=== PATIENT | female | born 1955 | race Caucasian/White ===

== ENCOUNTER 2016-10-07 16:11 | Inpatient (IN) | payer MEDICAID ==
[~2016-10-07] VITALS: Ht 147.3 cm; Wt 45.4 kg
[~2016-10-07 16:11] MED LIST: ATOR20TA65 PO; BACL-141 PO; DILT180C69 PO; MULT-348 PO; VITAMIN D2 PO
[2016-10-07] MEDS ORDERED: SODIUM CHLORIDE 0.9% 1,000 ML IV ONE (16:30)
[2016-10-07 17:14] LABS: BASOPHILS % 0.3 % (0.0-2.0); EOSINOPHILS % 0.4 % (0.0-5.0); HEMATOCRIT. 38.5 % (36.0-48.0); HEMOGLOBIN. 12.8 g/dL (12.0-16.0); LYMPHOCYTES % 9.9 % (20.0-50.0); MEAN CORPUSCULAR HEMOGLOBIN 29.8 pg (28.0-32.0); MEAN CORPUSCULAR HGB CONC 33.1 g/dL (31.0-37.0); MONOCYTES % 9.4 % (2.0-8.0); RED BLOOD CELL COUNT 4.28 mill/uL (4.2-5.4); RED CELL DISTRIBUTION WIDTH 14.8 % (11.6-14.6); WHITE BLOOD COUNT 8.9 x1000/uL (4.5-11.0)
[2016-10-07 17:20] LABS: CHLORIDE 108 mEq/L (98-107); DIFFERENTIAL COMMENT 1; INDEX HEMOLYSI 3 (1-3); INDEX ICTERIC 1 (1-4); INDEX LIPEMIC 1 (1-3)
[2016-10-07 17:22] LABS: ALBUMIN 3.8 g/dL (3.4-5.0); CALCIUM 9.1 mg/dL (8.5-10.1); INR 1.1; PROTHROMBIN TIME 11.4 sec
[2016-10-07 17:23] LABS: ANION GAP 17; CARBON DIOXIDE 23 mEq/L (21-32); UREA NITROGEN BLOOD 11 mg/dL (7-21)
[2016-10-07 17:28] LABS: ALANINE AMINOTRANSFERASE 51 IU/L (13-61); eGFR > 60 mL/min (>60)
[2016-10-07] MEDS ORDERED: ONDANSETRON HCL 4MG/2ML VIAL IV ONE (17:30)
[2016-10-07] MEDS ORDERED: MORPHINE SULFATE 4 MG/ML CPJ (NOT FOR IM USE) IV ONE ×3 (17:30→21:30)
[2016-10-07 17:34] LABS: MEAN PLATELET VOLUME 8.2 fl (7.4-10.4); PLATELET 196 x1000/uL (130-400)
[2016-10-07] MEDS ORDERED: CEFTRIAXONE 2 G PREMIX 50 ML IV SCH (18:00)
[2016-10-07 20:00] VITALS: BP 118/73
[2016-10-07] MEDS ORDERED: ASPIRIN 325MG TABLET PO NR (20:15)
[2016-10-07 20:24] LABS: CLARITY URINE CLOUDY (CLEAR); COLOR URINE YELLOW (YELLOW); GLUCOSE URINE NEGATIVE (NEGATIVE); KETONES URINE TRACE (NEGATIVE); LEUKOCYTE ESTERASE URINE 3+ (NEGATIVE); NITRITE URINE POSITIVE (NEGATIVE); OCCULT BLOOD URINE TRACE (NEGATIVE); PROTEIN URINE NEGATIVE (NEGATIVE); SPECIFIC GRAVITY URINE 1.015 (1.005-1.030)
[2016-10-07 20:45] LABS: BACTERIA URINE 2+; RBC URINE 0-2 /hpf (0-2); SQUAMOUS EPITHELIAL CELL URINE 1+ /lpf (RARE/1+); WBC URINE 25-50 /hpf (0-2)
[2016-10-07 23:30] VITALS: BP 118/73
[2016-10-07 23:40] VITALS: BP 118/73
[2016-10-08] MEDS ORDERED: ACETAMINOPHEN 650MG/20.3ML UDC PO PRN (01:15)
[2016-10-08] MEDS ORDERED: POTASSIUM CHLORIDE 20 MEQ/PACKET PO NR (01:30)
[2016-10-08] MEDS: DILTIAZEM HCL 180MG CAPSULE CD 24HR PO SCH ×2 (01:58→08:38)
[2016-10-08] MEDS: SODIUM CHLORIDE 0.9% 1,000 ML IV SCH ×2 (01:59→13:37)
[2016-10-08] MEDS: MORPHINE SULFATE 2 MG/ML CPJ (NOT FOR IM USE) IV PRN ×5 (02:02→20:09)
[2016-10-08 04:00] VITALS: BP 102/72
[2016-10-08] MEDS: OMEPRAZOLE 20MG CAPSULE EXTENDED RELEASE PO SCH (06:33)
[2016-10-08 07:28] LABS: BASOPHILS % 0.5 % (0.0-2.0); EOSINOPHILS % 1.4 % (0.0-5.0); HEMATOCRIT. 33.4 % (36.0-48.0); HEMOGLOBIN. 11.2 g/dL (12.0-16.0); LYMPHOCYTES % 19.2 % (20.0-50.0); MEAN CORPUSCULAR HGB CONC 33.4 g/dL (31.0-37.0); MEAN PLATELET VOLUME 7.9 fl (7.4-10.4); NEUTROPHILS % 67.9 % (40.0-76.0); PLATELET 176 x1000/uL (130-400); RED BLOOD CELL COUNT 3.71 mill/uL (4.2-5.4); RED CELL DISTRIBUTION WIDTH 15.1 % (11.6-14.6); WHITE BLOOD COUNT 7.1 x1000/uL (4.5-11.0)
[2016-10-08 07:49] LABS: ANION GAP 13; CALCIUM 8.7 mg/dL (8.5-10.1); CARBON DIOXIDE 24 mEq/L (21-32); CHLORIDE 113 mEq/L (98-107); INDEX HEMOLYSI 1 (1-3); INDEX ICTERIC 1 (1-4); INDEX LIPEMIC 1 (1-3); LDL CHOLESTEROL 61 mg/dL (5-100); TRIGLYCERIDE 55 mg/dL (0-150); UREA NITROGEN BLOOD 6 mg/dL (7-21)
[2016-10-08 07:59] LABS: HDL CHOLESTEROL 50 mg/dL (40-59); eGFR > 60 mL/min (>60)
[2016-10-08 08:00] VITALS: BP_SYST 111; BP_SYST 113; BP_DIAS 64; BP_DIAS 76
[2016-10-08] MEDS: MULTIVITAMINS,THER W-MINERALS TABLET PO SCH (08:38)
[2016-10-08] MEDS: ASPIRIN 81MG TABLET PO SCH (08:38)
[2016-10-08] MEDS: ENOXAPARIN 40MG/0.4ML SYR SUBCUT SCH (08:39)
[2016-10-08 12:00] VITALS: BP 120/74
[2016-10-08 16:00] VITALS: BP 106/75
[2016-10-08] MEDS ORDERED: CEFTRIAXONE 1 G PREMIX 50 ML IV SCH (18:00)
[2016-10-08] MEDS ORDERED: SODIUM CHLORIDE 0.9% 500 ML IV ONE ×2 (19:15→21:15)
[2016-10-08 20:00] VITALS: BP 132/76
[2016-10-08] MEDS: ATORVASTATIN CALCIUM 20MG TABLET PO SCH (20:09)
[2016-10-08 21:25] VITALS: BP 129/75
[2016-10-08] MEDS: DILTIAZEM HCL 60MG TABLET PO SCH (21:50)
[2016-10-08] MEDS: DEXT 5%/0.9% NACL 1,000 ML IV SCH (23:15)
[2016-10-09] VITALS (7 sets, daily range): BP systolic 107–125; BP diastolic 61–76
[2016-10-09 00:02] LABS: *AMPHETAMINES SCREEN URINE NEGATIVE (NEGATIVE); *BARBITURATES SCREEN URINE NEGATIVE (NEGATIVE); *BENZODIAZEPINES SCREEN URINE NEGATIVE (NEGATIVE); *COCAINE SCREEN URINE NEGATIVE (NEGATIVE); CANNABINOID URINE SCREEN NEGATIVE (NEGATIVE); ECSTASY MDMA SCREEN URINE NEGATIVE (NEGATIVE); METHADONE URINE SCREEN NEGATIVE (NEGATIVE); OPIATES URINE SCREEN PRESUMTIVE POSITIVE (NEGATIVE); PHENCYCLIDINE URINE SCREEN NEGATIVE (NEGATIVE)
[2016-10-09] MEDS: MORPHINE SULFATE 2 MG/ML CPJ (NOT FOR IM USE) IV PRN ×3 (01:12→08:58)
[2016-10-09 06:19] LABS: BASOPHILS % 0.4 % (0.0-2.0); EOSINOPHILS % 1.8 % (0.0-5.0); HEMATOCRIT. 36.2 % (36.0-48.0); HEMOGLOBIN. 12.1 g/dL (12.0-16.0); LYMPHOCYTES % 20.6 % (20.0-50.0); MEAN CORPUSCULAR HGB CONC 33.3 g/dL (31.0-37.0); MEAN CORPUSCULAR VOLUME 90.1 fL (81.0-99.0); MEAN PLATELET VOLUME 7.8 fl (7.4-10.4); MONOCYTES % 9.1 % (2.0-8.0); NEUTROPHILS % 68.1 % (40.0-76.0); PLATELET 176 x1000/uL (130-400); RED BLOOD CELL COUNT 4.02 mill/uL (4.2-5.4); RED CELL DISTRIBUTION WIDTH 14.7 % (11.6-14.6); WHITE BLOOD COUNT 6.2 x1000/uL (4.5-11.0)
[2016-10-09 06:32] LABS: ALANINE AMINOTRANSFERASE 37 IU/L (13-61); ANION GAP 12; CARBON DIOXIDE 27 mEq/L (21-32); CHLORIDE 109 mEq/L (98-107); INDEX HEMOLYSI 1 (1-3); INDEX ICTERIC 1 (1-4); INDEX LIPEMIC 1 (1-3); MAGNESIUM 1.5 mg/dL (1.8-2.4); THYROID STIMULATING HORMONE 0.95 uIU/mL (0.36-3.74); TRIGLYCERIDE 63 mg/dL (0-150); TROPONIN I < 0.02 ng/mL (0.00-0.04); eGFR > 60 mL/min (>60)
[2016-10-09 06:45] LABS: ALBUMIN 3.2 g/dL (3.4-5.0); CALCIUM 8.6 mg/dL (8.5-10.1); CREATINE KINASE 94 IU/L (26-192); HDL CHOLESTEROL 57 mg/dL (40-59); LDL CHOLESTEROL 54 mg/dL (5-100)
[2016-10-09] MEDS: DEXT 5%/0.9% NACL 1,000 ML IV SCH ×2 (06:52→15:51)
[2016-10-09] MEDS: OMEPRAZOLE 20MG CAPSULE EXTENDED RELEASE PO SCH (06:52)
[2016-10-09] MEDS: DILTIAZEM HCL 60MG TABLET PO SCH ×3 (06:52→18:00)
[2016-10-09 06:53] LABS: UREA NITROGEN BLOOD 4 mg/dL (7-21)
[2016-10-09] MEDS ORDERED: CEFEPIME 2,000 MG in DEXT 5% WATER 100 ML IV SCH (08:30)
[2016-10-09] MEDS: ASPIRIN 81MG TABLET PO SCH (08:32)
[2016-10-09] MEDS: MULTIVITAMINS,THER W-MINERALS TABLET PO SCH (08:32)
[2016-10-09] MEDS: ENOXAPARIN 40MG/0.4ML SYR SUBCUT SCH (08:34)
[2016-10-09] MEDS ORDERED: POTASSIUM CHLORIDE 20 MEQ/PACKET PO NR (10:00)
[2016-10-09] MEDS ORDERED: HYDROCODONE/ACETAMINOPHEN 5/325MG TABLET PO PRN (11:00)
[2016-10-09] MEDS ORDERED: MAGNESIUM 2 G PREMIX 50 ML IV NR (11:00)
[2016-10-09 11:35] LABS: BASOPHILS % 0.5 % (0.0-2.0); EOSINOPHILS % 0.8 % (0.0-5.0); HEMATOCRIT. 34.5 % (36.0-48.0); HEMOGLOBIN. 11.8 g/dL (12.0-16.0); MEAN CORPUSCULAR HEMOGLOBIN 30.2 pg (28.0-32.0); MEAN CORPUSCULAR HGB CONC 34.1 g/dL (31.0-37.0); MEAN CORPUSCULAR VOLUME 88.5 fL (81.0-99.0); MEAN PLATELET VOLUME 7.9 fl (7.4-10.4); MONOCYTES % 7.8 % (2.0-8.0); NEUTROPHILS % 78.9 % (40.0-76.0); PLATELET 162 x1000/uL (130-400); RED CELL DISTRIBUTION WIDTH 14.7 % (11.6-14.6); WHITE BLOOD COUNT 6.2 x1000/uL (4.5-11.0)
[2016-10-09] MEDS: HYDROCODONE/ACETAMINOPHEN 5/325MG TABLET PO PRN ×2 (13:31→20:10)
[2016-10-09] MEDS: CEFEPIME 1,000 MG in DEXTROSE 5% WATER 50 ML IV SCH (18:54)
[2016-10-09] MEDS: ATORVASTATIN CALCIUM 20MG TABLET PO SCH (20:09)
[2016-10-09] MEDS ORDERED: CEFEPIME 1GM PREMIX 50 ML IV SCH (21:00)
[2016-10-10] VITALS (10 sets, daily range): BP systolic 103–155; BP diastolic 58–109
[2016-10-10] MEDS: DILTIAZEM HCL 60MG TABLET PO SCH ×5 (00:34→23:31)
[2016-10-10] MEDS: CEFEPIME 1,000 MG in DEXTROSE 5% WATER 50 ML IV SCH ×2 (04:57→17:44)
[2016-10-10] MEDS: HYDROCODONE/ACETAMINOPHEN 5/325MG TABLET PO PRN (05:00)
[2016-10-10] MEDS: MORPHINE SULFATE 2 MG/ML CPJ (NOT FOR IM USE) IV PRN ×4 (06:10→20:45)
[2016-10-10] MEDS: OMEPRAZOLE 20MG CAPSULE EXTENDED RELEASE PO SCH (06:17)
[2016-10-10] MEDS ORDERED: INSULIN LISPRO 100 UNITS/ML SUBCUT SCH (07:20)
[2016-10-10] MEDS ORDERED: DILTIAZEM HCL 5MG/ML 5ML VIAL IV SCH (07:45)
[2016-10-10 07:47] LABS: ANION GAP 11; CALCIUM 8.7 mg/dL (8.5-10.1); CARBON DIOXIDE 25 mEq/L (21-32); CHLORIDE 109 mEq/L (98-107); INDEX HEMOLYSI 1 (1-3); INDEX ICTERIC 1 (1-4); INDEX LIPEMIC 1 (1-3); MAGNESIUM 2.3 mg/dL (1.8-2.4); TROPONIN I < 0.02 ng/mL (0.00-0.04); eGFR > 60 mL/min (>60)
[2016-10-10 08:03] LABS: UREA NITROGEN BLOOD 4 mg/dL (7-21)
[2016-10-10] MEDS ORDERED: DILTIAZEM HCL 5MG/ML 5ML VIAL IV ONE (08:32)
[2016-10-10] MEDS: DILTIAZEM HCL 125 MG in DEXT 5% WATER 100 ML IV SCH (10:06)
[2016-10-10] MEDS: ASPIRIN 81MG TABLET PO SCH (12:26)
[2016-10-10] MEDS: MULTIVITAMINS,THER W-MINERALS TABLET PO SCH (12:26)
[2016-10-10] MEDS: ENOXAPARIN 40MG/0.4ML SYR SUBCUT SCH (12:26)
[2016-10-10] MEDS: DEXT 5%/0.9% NACL 1,000 ML IV SCH (17:45)
[2016-10-10] MEDS: ATORVASTATIN CALCIUM 20MG TABLET PO SCH (22:24)
[2016-10-11] VITALS (12 sets, daily range): BP systolic 112–161; BP diastolic 72–94
[2016-10-11] MEDS: CEFEPIME 1,000 MG in DEXTROSE 5% WATER 50 ML IV SCH ×2 (04:52→17:33)
[2016-10-11] MEDS: DILTIAZEM HCL 60MG TABLET PO SCH ×4 (07:00→23:23)
[2016-10-11 07:47] LABS: BASOPHILS % 0.5 % (0.0-2.0); EOSINOPHILS % 0.5 % (0.0-5.0); HEMOGLOBIN. 13.3 g/dL (12.0-16.0); LYMPHOCYTES % 11.1 % (20.0-50.0); MEAN CORPUSCULAR HEMOGLOBIN 29.5 pg (28.0-32.0); MEAN CORPUSCULAR HGB CONC 32.6 g/dL (31.0-37.0); MEAN CORPUSCULAR VOLUME 90.4 fL (81.0-99.0); MEAN PLATELET VOLUME 7.7 fl (7.4-10.4); MONOCYTES % 7.5 % (2.0-8.0); NEUTROPHILS % 80.4 % (40.0-76.0); PLATELET 218 x1000/uL (130-400); RED BLOOD CELL COUNT 4.51 mill/uL (4.2-5.4); RED CELL DISTRIBUTION WIDTH 14.7 % (11.6-14.6); WHITE BLOOD COUNT 8.7 x1000/uL (4.5-11.0)
[2016-10-11 07:49] LABS: HEMATOCRIT. 40.8 % (36.0-48.0)
[2016-10-11 08:22] LABS: ANION GAP 13; CARBON DIOXIDE 26 mEq/L (21-32); CHLORIDE 108 mEq/L (98-107); INDEX HEMOLYSI 1 (1-3); INDEX ICTERIC 1 (1-4); INDEX LIPEMIC 1 (1-3); eGFR > 60 mL/min (>60)
[2016-10-11 08:44] LABS: UREA NITROGEN BLOOD 4 mg/dL (7-21)
[2016-10-11] MEDS: ENOXAPARIN 40MG/0.4ML SYR SUBCUT SCH (09:00)
[2016-10-11] MEDS: ASPIRIN 81MG TABLET PO SCH (09:32)
[2016-10-11] MEDS: MULTIVITAMINS,THER W-MINERALS TABLET PO SCH (09:32)
[2016-10-11] MEDS: OMEPRAZOLE 20MG CAPSULE EXTENDED RELEASE PO SCH (09:32)
[2016-10-11] MEDS: MORPHINE SULFATE 2 MG/ML CPJ (NOT FOR IM USE) IV PRN ×3 (09:33→17:33)
[2016-10-11] MEDS: DILTIAZEM HCL 125 MG in DEXT 5% WATER 100 ML IV SCH (10:17)
[2016-10-11] MEDS: ATORVASTATIN CALCIUM 20MG TABLET PO SCH (21:18)
[2016-10-11] MEDS: DEXT 5%/0.9% NACL 1,000 ML IV SCH (21:40)
[2016-10-12] VITALS (12 sets, daily range): BP systolic 105–148; BP diastolic 56–87
[2016-10-12] MEDS: CEFEPIME 1,000 MG in DEXTROSE 5% WATER 50 ML IV SCH ×2 (04:59→17:36)
[2016-10-12] MEDS: DILTIAZEM HCL 60MG TABLET PO SCH ×4 (06:00→23:06)
[2016-10-12] MEDS: MULTIVITAMINS,THER W-MINERALS TABLET PO SCH (08:58)
[2016-10-12] MEDS: ASPIRIN 81MG TABLET PO SCH (08:58)
[2016-10-12] MEDS: OMEPRAZOLE 20MG CAPSULE EXTENDED RELEASE PO SCH (08:58)
[2016-10-12] MEDS: ENOXAPARIN 40MG/0.4ML SYR SUBCUT SCH (08:58)
[2016-10-12] MEDS: MORPHINE SULFATE 2 MG/ML CPJ (NOT FOR IM USE) IV PRN ×4 (08:59→23:06)
[2016-10-12] MEDS: DEXT 5%/0.9% NACL 1,000 ML IV SCH ×2 (09:00→23:06)
[2016-10-12] MEDS: DILTIAZEM HCL 125 MG in DEXT 5% WATER 100 ML IV SCH (11:04)
[2016-10-12] MEDS: ATORVASTATIN CALCIUM 20MG TABLET PO SCH (20:19)
[2016-10-13] VITALS (12 sets, daily range): BP systolic 116–135; BP diastolic 71–89
[2016-10-13] MEDS: CEFEPIME 1,000 MG in DEXTROSE 5% WATER 50 ML IV SCH ×2 (05:20→16:53)
[2016-10-13] MEDS: DILTIAZEM HCL 60MG TABLET PO SCH (05:24)
[2016-10-13] MEDS: ENOXAPARIN 40MG/0.4ML SYR SUBCUT SCH (08:58)
[2016-10-13] MEDS: ASPIRIN 81MG TABLET PO SCH (08:58)
[2016-10-13] MEDS: FAMOTIDINE 20MG TABLET PO SCH ×2 (08:58→21:13)
[2016-10-13] MEDS: MULTIVITAMINS,THER W-MINERALS TABLET PO SCH (08:58)
[2016-10-13] MEDS: HYDROCODONE/ACETAMINOPHEN 5/325MG TABLET PO PRN ×3 (09:14→21:14)
[2016-10-13] MEDS: DEXT 5%/0.9% NACL 1,000 ML IV SCH ×2 (10:40→23:15)
[2016-10-13] MEDS: METOPROLOL TARTRATE 25MG TABLET PO SCH ×2 (10:40→21:15)
[2016-10-13] MEDS: ATORVASTATIN CALCIUM 20MG TABLET PO SCH (21:15)
[2016-10-14] VITALS (12 sets, daily range): BP systolic 109–130; BP diastolic 56–82
[2016-10-14] MEDS: CEFEPIME 1,000 MG in DEXTROSE 5% WATER 50 ML IV SCH ×2 (04:53→17:43)
[2016-10-14] MEDS: HYDROCODONE/ACETAMINOPHEN 5/325MG TABLET PO PRN ×3 (05:04→17:44)
[2016-10-14] MEDS: ENOXAPARIN 40MG/0.4ML SYR SUBCUT SCH (08:14)
[2016-10-14] MEDS: METOPROLOL TARTRATE 25MG TABLET PO SCH ×2 (08:15→21:33)
[2016-10-14] MEDS: ASPIRIN 81MG TABLET PO SCH (08:15)
[2016-10-14] MEDS: MULTIVITAMINS,THER W-MINERALS TABLET PO SCH (08:15)
[2016-10-14] MEDS: FAMOTIDINE 20MG TABLET PO SCH ×2 (08:15→21:33)
[2016-10-14] MEDS: DEXT 5%/0.9% NACL 1,000 ML IV SCH (11:29)
[2016-10-14] MEDS: ATORVASTATIN CALCIUM 20MG TABLET PO SCH (21:33)
[2016-10-15] VITALS (10 sets, daily range): BP systolic 115–138; BP diastolic 67–80
[2016-10-15] MEDS: HYDROCODONE/ACETAMINOPHEN 5/325MG TABLET PO PRN ×4 (01:24→15:17)
[2016-10-15] MEDS: DEXT 5%/0.9% NACL 1,000 ML IV SCH ×2 (01:25→13:05)
[2016-10-15] MEDS: CEFEPIME 1,000 MG in DEXTROSE 5% WATER 50 ML IV SCH ×2 (04:16→16:55)
[2016-10-15 06:57] LABS: BASOPHILS % 0.9 % (0.0-2.0); EOSINOPHILS % 2.9 % (0.0-5.0); HEMOGLOBIN. 10.3 g/dL (12.0-16.0); LYMPHOCYTES % 19.6 % (20.0-50.0); MEAN CORPUSCULAR HEMOGLOBIN 29.9 pg (28.0-32.0); MEAN CORPUSCULAR HGB CONC 33.1 g/dL (31.0-37.0); MEAN CORPUSCULAR VOLUME 90.2 fL (81.0-99.0); MEAN PLATELET VOLUME 7.1 fl (7.4-10.4); MONOCYTES % 10.3 % (2.0-8.0); NEUTROPHILS % 66.3 % (40.0-76.0); PLATELET 253 x1000/uL (130-400); RED BLOOD CELL COUNT 3.44 mill/uL (4.2-5.4); RED CELL DISTRIBUTION WIDTH 14.3 % (11.6-14.6); WHITE BLOOD COUNT 7.6 x1000/uL (4.5-11.0)
[2016-10-15 08:23] LABS: ALANINE AMINOTRANSFERASE 19 IU/L (13-61); ALBUMIN 2.6 g/dL (3.4-5.0); ANION GAP 11; CALCIUM 8.4 mg/dL (8.5-10.1); CARBON DIOXIDE 26 mEq/L (21-32); CHLORIDE 110 mEq/L (98-107); INDEX HEMOLYSI 1 (1-3); INDEX ICTERIC 1 (1-4); INDEX LIPEMIC 1 (1-3); UREA NITROGEN BLOOD 11 mg/dL (7-21); eGFR > 60 mL/min (>60)
[2016-10-15] MEDS: ENOXAPARIN 40MG/0.4ML SYR SUBCUT SCH (09:01)
[2016-10-15] MEDS: METOPROLOL TARTRATE 25MG TABLET PO SCH (09:02)
[2016-10-15] MEDS: MULTIVITAMINS,THER W-MINERALS TABLET PO SCH (09:02)
[2016-10-15] MEDS: ASPIRIN 81MG TABLET PO SCH (09:02)
[2016-10-15] MEDS: FAMOTIDINE 20MG TABLET PO SCH (09:03)
== END 2016-10-15 18:30 | disposition home or self-care (01) | DRG 203 ==
LOC: ER 16:12 → 6WST 20:05 → 5EST 10-10 09:20
PROVIDERS: ADMIT Internal Medicine; ATTEND Internal Medicine
PROC: 05H933Z Insertion of Infusion Device into Right Brachial Vein, Percutaneous Approach (ICD-10-PCS; principal; 2016-10-10)
PROC: B54MZZA Ultrasonography of Right Upper Extremity Veins, Guidance (ICD-10-PCS; 2016-10-10)
DX: M94.0 Chondrocostal junction syndrome [Tietze] (principal); J96.10 Chronic respiratory failure, unspecified whether with hypoxia or hypercapnia; L89.329 Pressure ulcer of left buttock, unspecified stage; R53.2 Functional quadriplegia; Z93.0 Tracheostomy status; R65.10 Systemic inflammatory response syndrome (SIRS) of non-infectious origin without acute organ dysfunction; I11.9 Hypertensive heart disease without heart failure; N12 Tubulo-interstitial nephritis, not specified as acute or chronic; E83.42 Hypomagnesemia; M41.9 Scoliosis, unspecified; R00.0 Tachycardia, unspecified; G40.909 Epilepsy, unspecified, not intractable, without status epilepticus; E87.6 Hypokalemia; F41.9 Anxiety disorder, unspecified; E78.00 Pure hypercholesterolemia, unspecified; E78.5 Hyperlipidemia, unspecified; J45.909 Unspecified asthma, uncomplicated; G80.9 Cerebral palsy, unspecified; Z79.899 Other long term (current) drug therapy; Z79.82 Long term (current) use of aspirin; Z74.01 Bed confinement status; Z87.440 Personal history of urinary (tract) infections; Z90.49 Acquired absence of other specified parts of digestive tract
CPT/HCPCS: 36415; 36569; 71010; 76937; 78582; 80048; 80053; 80061; 80305; 81001; 82550; 82553; 83036; 83605; 83735; 84443; 84484; 85025; 85379; 85610; 87040; 87086; 93005; 93306; 93970; 96361; 96365; 96375; 96376; 99291; A9558; C1725; J0692; J0696; J1650; J2270; J2405; J3475; J3490; J7030; J7040; J7042; J7060

== ENCOUNTER 2017-03-08 22:41 | Inpatient (IN) | payer MEDICAID ==
[~2017-03-08] VITALS: Ht 147.3 cm; Wt 37.2 kg
[2017-03-08] MEDS ORDERED: SODIUM CHLORIDE 0.9% 1,000 ML IV ONE (22:59)
[2017-03-08] MEDS ORDERED: FAMOTIDINE 20MG/2ML VIAL IV STA (22:59)
[2017-03-08] MEDS ORDERED: ONDANSETRON HCL 4MG/2ML VIAL IV STA (22:59)
[2017-03-08 23:35] LABS: HEMATOCRIT. 35.6 % (36.0-48.0); HEMOGLOBIN. 11.6 g/dL (12.0-16.0); MEAN CORPUSCULAR HEMOGLOBIN 27.5 pg (28.0-32.0); MEAN CORPUSCULAR VOLUME 84.3 fL (81.0-99.0); MEAN PLATELET VOLUME 7.5 fl (7.4-10.4); PLATELET 255 x1000/uL (130-400); RED BLOOD CELL COUNT 4.22 mill/uL (4.2-5.4); RED CELL DISTRIBUTION WIDTH 16.7 % (11.6-14.6)
[2017-03-08 23:51] LABS: CARBON DIOXIDE 26 mEq/L (21-32); CHLORIDE 105 mEq/L (98-107); ETHANOL BLOOD < 10 mg/dL; TROPONIN I < 0.02 ng/mL (0.00-0.04)
[2017-03-09] MEDS ORDERED: ASPIRIN 81MG TABLET PO SCH (00:13)
[2017-03-09 00:18] LABS: PLATELET ESTIMATE NORMAL
[2017-03-09 01:49] LABS: CLARITY URINE CLOUDY (CLEAR); COLOR URINE YELLOW (YELLOW); GLUCOSE URINE NEGATIVE (NEGATIVE); KETONES URINE NEGATIVE (NEGATIVE); LEUKOCYTE ESTERASE URINE 3+ (NEGATIVE); NITRITE URINE POSITIVE (NEGATIVE); OCCULT BLOOD URINE NEGATIVE (NEGATIVE); PH URINE >=9.0 (4.5-8.0); PROTEIN URINE 1+ (NEGATIVE); SPECIFIC GRAVITY URINE 1.017 (1.005-1.030); UROBILINOGEN URINE 0.2 E.U./dL (0.2-1.0)
[2017-03-09] MEDS ORDERED: POTASSIUM BICARB/CIT ACID 25 MEQ TABLET.EFF PO SCH (02:19)
[2017-03-09] MEDS ORDERED: KCL 20MEQ/100ML PREMIX 100 ML IV SCH (02:30)
[2017-03-09] MEDS ORDERED: LEVOFLOXACIN 750MG PREMIX 150 ML IV ONE (02:30)
[2017-03-09] MEDS ORDERED: FENTANYL CITRATE/PF 50MCG/ML 2ML VIAL IV ONE (02:30)
[2017-03-09 03:52] LABS: *AMPHETAMINES SCREEN URINE NEGATIVE (NEGATIVE); *BARBITURATES SCREEN URINE NEGATIVE (NEGATIVE); *BENZODIAZEPINES SCREEN URINE NEGATIVE (NEGATIVE); *COCAINE SCREEN URINE NEGATIVE (NEGATIVE); CANNABINOID URINE SCREEN NEGATIVE (NEGATIVE); METHADONE URINE SCREEN NEGATIVE (NEGATIVE); OPIATES URINE SCREEN PRESUMTIVE POSITIVE (NEGATIVE); PHENCYCLIDINE URINE SCREEN NEGATIVE (NEGATIVE)
[2017-03-09 04:18] VITALS: BP 111/62
[2017-03-09] MEDS ORDERED: PANT40TA4 PO (05:25)
[2017-03-09] MEDS ORDERED: METO50TA5 PO (05:26)
[2017-03-09] MEDS ORDERED: HYDR-519 PO (05:27)
[2017-03-09] MEDS ORDERED: FURO20TA4 PO (05:28)
[2017-03-09] MEDS ORDERED: POTASSIUM CHLORIDE 20MEQ TABLET SR PO SCH (05:45)
[2017-03-09] MEDS: ONDANSETRON HCL 4MG/2ML VIAL IV PRN (06:49)
[2017-03-09] MEDS: HYDROCODONE/ACETAMINOPHEN 10/325MG TABLET PO PRN (06:53)
[2017-03-09] MEDS: PANTOPRAZOLE 40MG DR TABLET PO SCH (06:55)
[2017-03-09 08:00] VITALS: BP 169/49
[2017-03-09] MEDS: BACLOFEN 10MG TABLET PO SCH ×3 (08:33→16:38)
[2017-03-09] MEDS: METOPROLOL TARTRATE 50MG TABLET PO SCH ×2 (08:33→20:13)
[2017-03-09] MEDS: DILTIAZEM HCL 180MG CAPSULE CD 24HR PO SCH (08:34)
[2017-03-09] MEDS ORDERED: ENOXAPARIN 40MG/0.4ML SYR SUBCUT SCH (09:00)
[2017-03-09] MEDS ORDERED: MORPHINE SULFATE 2 MG/ML CPJ (NOT FOR IM USE) IV PRN (11:30)
[2017-03-09 12:00] VITALS: BP 98/49
[2017-03-09] MEDS ORDERED: NA PHOS,M-B/NA PHOS,DI-BA ENEMA 118ML PR NR (12:18)
[2017-03-09] MEDS ORDERED: SODIUM CHLORIDE 0.9% 1,000 ML IV SCH (12:19)
[2017-03-09] MEDS: DOCUSATE SODIUM 100MG CAPSULE PO SCH ×2 (12:48→16:38)
[2017-03-09] MEDS: SODIUM CHLORIDE 0.9% 1,000 ML IV SCH (12:48)
[2017-03-09] MEDS: MORPHINE SULFATE 4 MG/ML CPJ (NOT FOR IM USE) IV PRN ×3 (12:50→22:59)
[2017-03-09] MEDS: PIPERACILLIN/TAZ 2.25G PREMIX 50 ML IV SCH ×2 (14:36→20:12)
[2017-03-09] MEDS ORDERED: VANCOMYCIN 750 MG PREMIX 150 ML IV SCH (15:00)
[2017-03-09 16:00] VITALS: BP 126/49
[2017-03-09 20:00] VITALS: BP 105/46
[2017-03-09] MEDS: ATORVASTATIN CALCIUM 20MG TABLET PO SCH (20:13)
[2017-03-10] VITALS: BP 105/37
[2017-03-10] MEDS: PIPERACILLIN/TAZ 2.25G PREMIX 50 ML IV SCH ×4 (01:47→19:17)
[2017-03-10] MEDS ORDERED: LEVOFLOXACIN 500MG PREMIX 100 ML IV SCH (03:00)
[2017-03-10] MEDS: MORPHINE SULFATE 4 MG/ML CPJ (NOT FOR IM USE) IV PRN ×5 (03:50→22:20)
[2017-03-10 04:00] VITALS: BP_SYST 105; BP_SYST 87; BP_DIAS 37; BP_DIAS 49
[2017-03-10] MEDS: SODIUM CHLORIDE 0.9% 1,000 ML IV SCH (04:58)
[2017-03-10] MEDS: VANCOMYCIN 500 MG PREMIX 100 ML IV SCH ×2 (04:58→16:01)
[2017-03-10] MEDS: PANTOPRAZOLE 40MG DR TABLET PO SCH (06:33)
[2017-03-10 07:42] VITALS: BP 92/42
[2017-03-10] MEDS: DOCUSATE SODIUM 100MG CAPSULE PO SCH ×2 (08:18→16:01)
[2017-03-10] MEDS: BACLOFEN 10MG TABLET PO SCH ×3 (08:18→16:01)
[2017-03-10] MEDS: ENOXAPARIN 30MG/0.3ML SYR SUBCUT SCH (08:18)
[2017-03-10] MEDS: DILTIAZEM HCL 180MG CAPSULE CD 24HR PO SCH (09:00)
[2017-03-10] MEDS: METOPROLOL TARTRATE 50MG TABLET PO SCH ×2 (09:00→20:32)
[2017-03-10] MEDS ORDERED: POTASSIUM ACETATE 20 MEQ in SODIUM CHLORIDE 0.9% 1,000 ML IV SCH (09:56)
[2017-03-10] MEDS: LACTULOSE 20G/30ML UDC PO SCH ×3 (10:23→22:19)
[2017-03-10 11:17] LABS: CARBON DIOXIDE 23 mEq/L (21-32); CHLORIDE 110 mEq/L (98-107); HEMATOCRIT 32.7 % (36.0-48.0); HEMOGLOBIN 10.7 g/dL (12.0-16.0); MEAN CORPUSCULAR HEMOGLOBIN 27.8 pg (28.0-32.0); MEAN CORPUSCULAR VOLUME 85.4 fL (81.0-99.0); PLATELET 194 x1000/uL (130-400); RED BLOOD CELL COUNT 3.83 mill/uL (4.2-5.4); RED CELL DISTRIBUTION WIDTH 17.4 % (11.6-14.6)
[2017-03-10 12:00] VITALS: BP 95/42
[2017-03-10] MEDS: SODIUM CHL 0.9% + KCL 20MEQ/L 1,000 ML IV SCH (12:10)
[2017-03-10 16:00] VITALS: BP 102/53
[2017-03-10] MEDS: ONDANSETRON HCL 4MG/2ML VIAL IV PRN (19:18)
[2017-03-10 20:00] VITALS: BP 111/74
[2017-03-10] MEDS: ATORVASTATIN CALCIUM 20MG TABLET PO SCH (20:32)
[2017-03-10] MEDS: HYDROCODONE/ACETAMINOPHEN 10/325MG TABLET PO PRN (23:05)
[2017-03-11] VITALS: BP 103/54
[2017-03-11 04:00] VITALS: BP 112/68
[2017-03-11] MEDS: SODIUM CHL 0.9% + KCL 20MEQ/L 1,000 ML IV SCH ×3 (04:50→20:53)
[2017-03-11] MEDS: PIPERACILLIN/TAZ 2.25G PREMIX 50 ML IV SCH ×4 (04:50→20:52)
[2017-03-11] MEDS: VANCOMYCIN 500 MG PREMIX 100 ML IV SCH ×2 (05:56→14:26)
[2017-03-11] MEDS: LACTULOSE 20G/30ML UDC PO SCH ×2 (06:56→13:28)
[2017-03-11 08:00] VITALS: BP 116/82
[2017-03-11] MEDS: BACLOFEN 10MG TABLET PO SCH ×3 (08:16→17:38)
[2017-03-11] MEDS: METOPROLOL TARTRATE 50MG TABLET PO SCH ×2 (08:16→20:53)
[2017-03-11] MEDS: DOCUSATE SODIUM 100MG CAPSULE PO SCH ×2 (08:16→17:38)
[2017-03-11] MEDS: FAMOTIDINE 20MG TABLET PO SCH ×2 (08:16→17:38)
[2017-03-11] MEDS: DILTIAZEM HCL 180MG CAPSULE CD 24HR PO SCH (08:17)
[2017-03-11] MEDS: ENOXAPARIN 30MG/0.3ML SYR SUBCUT SCH (08:17)
[2017-03-11] MEDS: MORPHINE SULFATE 4 MG/ML CPJ (NOT FOR IM USE) IV PRN ×4 (09:00→21:06)
[2017-03-11 11:50] LABS: HEMATOCRIT 29.7 % (36.0-48.0); HEMOGLOBIN 9.7 g/dL (12.0-16.0); MEAN CORPUSCULAR HEMOGLOBIN 27.9 pg (28.0-32.0); MEAN CORPUSCULAR VOLUME 85.1 fL (81.0-99.0); PLATELET 172 x1000/uL (130-400); RED BLOOD CELL COUNT 3.49 mill/uL (4.2-5.4); RED CELL DISTRIBUTION WIDTH 16.7 % (11.6-14.6)
[2017-03-11 11:58] LABS: CHLORIDE 114 mEq/L (98-107)
[2017-03-11 12:00] VITALS: BP 94/30
[2017-03-11 12:05] LABS: CARBON DIOXIDE 23 mEq/L (21-32)
[2017-03-11 16:00] VITALS: BP 142/72
[2017-03-11 20:00] VITALS: BP 98/52
[2017-03-11] MEDS: ATORVASTATIN CALCIUM 20MG TABLET PO SCH (20:53)
[2017-03-11] MEDS ORDERED: ACETAMINOPHEN 325MG TABLET PO PRN (23:45)
[2017-03-12] VITALS: BP 101/63
[2017-03-12] MEDS: PIPERACILLIN/TAZ 2.25G PREMIX 50 ML IV SCH ×4 (02:00→20:25)
[2017-03-12 04:00] VITALS: BP 138/78
[2017-03-12] MEDS: VANCOMYCIN 500 MG PREMIX 100 ML IV SCH (04:15)
[2017-03-12] MEDS: MORPHINE SULFATE 4 MG/ML CPJ (NOT FOR IM USE) IV PRN ×5 (04:35→20:31)
[2017-03-12 08:00] VITALS: BP 124/66
[2017-03-12] MEDS: DILTIAZEM HCL 180MG CAPSULE CD 24HR PO SCH (09:33)
[2017-03-12] MEDS: BACLOFEN 10MG TABLET PO SCH ×3 (09:33→17:02)
[2017-03-12] MEDS: METOPROLOL TARTRATE 50MG TABLET PO SCH ×2 (09:33→20:27)
[2017-03-12] MEDS: FAMOTIDINE 20MG TABLET PO SCH ×2 (09:33→17:02)
[2017-03-12] MEDS: DOCUSATE SODIUM 100MG CAPSULE PO SCH ×2 (09:34→17:02)
[2017-03-12] MEDS: ENOXAPARIN 40MG/0.4ML SYR SUBCUT SCH (09:36)
[2017-03-12 12:00] VITALS: BP 116/58
[2017-03-12 16:00] VITALS: BP_SYST 111; BP_SYST 116; BP_DIAS 58; BP_DIAS 61
[2017-03-12] MEDS: SODIUM CHL 0.9% + KCL 20MEQ/L 1,000 ML IV SCH (17:02)
[2017-03-12 20:00] VITALS: BP 123/65
[2017-03-12] MEDS: ATORVASTATIN CALCIUM 20MG TABLET PO SCH (20:28)
[2017-03-13] VITALS: BP 107/58
[2017-03-13] MEDS: PIPERACILLIN/TAZ 2.25G PREMIX 50 ML IV SCH ×4 (02:41→20:33)
[2017-03-13 04:00] VITALS: BP 134/64
[2017-03-13] MEDS: KETOROLAC 30MG/ML VIAL IV PRN (04:48)
[2017-03-13 08:00] VITALS: BP 137/64
[2017-03-13] MEDS: BACLOFEN 10MG TABLET PO SCH ×3 (08:11→17:01)
[2017-03-13] MEDS: FAMOTIDINE 20MG TABLET PO SCH ×2 (08:11→17:01)
[2017-03-13] MEDS: DILTIAZEM HCL 180MG CAPSULE CD 24HR PO SCH (08:11)
[2017-03-13] MEDS: METOPROLOL TARTRATE 50MG TABLET PO SCH ×2 (08:12→20:34)
[2017-03-13] MEDS: ENOXAPARIN 40MG/0.4ML SYR SUBCUT SCH (08:12)
[2017-03-13] MEDS: DOCUSATE SODIUM 100MG CAPSULE PO SCH ×2 (08:25→17:01)
[2017-03-13] MEDS: MORPHINE SULFATE 4 MG/ML CPJ (NOT FOR IM USE) IV PRN ×3 (11:52→19:51)
[2017-03-13 12:00] VITALS: BP 109/51
[2017-03-13] MEDS ORDERED: HYDROCODONE/ACETAMINOPHEN 10/325MG TABLET PO PRN (13:30)
[2017-03-13] MEDS: SODIUM CHL 0.9% + KCL 20MEQ/L 1,000 ML IV SCH ×2 (13:37→18:14)
[2017-03-13 16:00] VITALS: BP 112/56
[2017-03-13 19:50] VITALS: BP 116/57
[2017-03-13] MEDS: ATORVASTATIN CALCIUM 20MG TABLET PO SCH (20:33)
[2017-03-14 00:04] VITALS: BP 128/68
[2017-03-14] MEDS: MORPHINE SULFATE 4 MG/ML CPJ (NOT FOR IM USE) IV PRN ×4 (00:58→18:46)
[2017-03-14] MEDS: PIPERACILLIN/TAZ 2.25G PREMIX 50 ML IV SCH ×4 (01:01→20:12)
[2017-03-14] MEDS: SODIUM CHL 0.9% + KCL 20MEQ/L 1,000 ML IV SCH ×2 (04:19→20:12)
[2017-03-14 04:34] VITALS: BP 114/58
[2017-03-14] MEDS: KETOROLAC 30MG/ML VIAL IV PRN (04:40)
[2017-03-14 07:54] VITALS: BP 120/65
[2017-03-14] MEDS: METOPROLOL TARTRATE 50MG TABLET PO SCH ×2 (08:23→20:12)
[2017-03-14] MEDS: DOCUSATE SODIUM 100MG CAPSULE PO SCH ×2 (08:23→15:49)
[2017-03-14] MEDS: BACLOFEN 10MG TABLET PO SCH ×3 (08:23→18:45)
[2017-03-14] MEDS: DILTIAZEM HCL 180MG CAPSULE CD 24HR PO SCH (08:23)
[2017-03-14] MEDS: ENOXAPARIN 40MG/0.4ML SYR SUBCUT SCH (08:23)
[2017-03-14] MEDS: FAMOTIDINE 20MG TABLET PO SCH ×2 (08:23→18:45)
[2017-03-14 08:31] LABS: HEMATOCRIT 35.6 % (36.0-48.0); HEMOGLOBIN 11.3 g/dL (12.0-16.0); MEAN CORPUSCULAR HEMOGLOBIN 27.5 pg (28.0-32.0); MEAN CORPUSCULAR VOLUME 86.2 fL (81.0-99.0); PLATELET 181 x1000/uL (130-400); RED BLOOD CELL COUNT 4.13 mill/uL (4.2-5.4); RED CELL DISTRIBUTION WIDTH 17.1 % (11.6-14.6)
[2017-03-14 08:59] LABS: CHLORIDE 116 mEq/L (98-107)
[2017-03-14 09:06] LABS: CARBON DIOXIDE 22 mEq/L (21-32)
[2017-03-14 11:41] VITALS: BP 112/60
[2017-03-14 15:46] VITALS: BP 106/55
[2017-03-14 19:58] VITALS: BP 126/66
[2017-03-14] MEDS: ATORVASTATIN CALCIUM 20MG TABLET PO SCH (20:12)
[2017-03-15 00:05] VITALS: BP 130/80
[2017-03-15] MEDS: MORPHINE SULFATE 4 MG/ML CPJ (NOT FOR IM USE) IV PRN ×5 (00:32→16:59)
[2017-03-15] MEDS: PIPERACILLIN/TAZ 2.25G PREMIX 50 ML IV SCH ×2 (02:18→08:21)
[2017-03-15 04:00] VITALS: BP 118/60
[2017-03-15 04:12] VITALS: BP 118/60
[2017-03-15 08:00] VITALS: BP 129/64
[2017-03-15] MEDS: METOPROLOL TARTRATE 50MG TABLET PO SCH (08:22)
[2017-03-15] MEDS: BACLOFEN 10MG TABLET PO SCH ×3 (08:22→16:59)
[2017-03-15] MEDS: DILTIAZEM HCL 180MG CAPSULE CD 24HR PO SCH (08:22)
[2017-03-15] MEDS: DOCUSATE SODIUM 100MG CAPSULE PO SCH ×3 (08:23→16:59)
[2017-03-15] MEDS: FAMOTIDINE 20MG TABLET PO SCH ×2 (08:23→16:59)
[2017-03-15] MEDS: ENOXAPARIN 40MG/0.4ML SYR SUBCUT SCH (08:23)
[2017-03-15] MEDS ORDERED: SULFAMETHOXAZOLE/TRIMETHOPRIM 400/80MG TAB PO SCH (10:00)
[2017-03-15] MEDS ORDERED: SULF-292 PO (10:11)
[2017-03-15] MEDS ORDERED: HYDR-519 PO ×3 (10:11→10:16)
[2017-03-15 10:26] VITALS: BP 129/64
[2017-03-15] MEDS: SODIUM CHL 0.9% + KCL 20MEQ/L 1,000 ML IV SCH (13:26)
[2017-03-15 16:00] VITALS: BP_SYST 121; BP_SYST 145; BP_DIAS 64; BP_DIAS 94
== END 2017-03-15 18:30 | disposition home or self-care (01) | DRG 720 ==
LOC: ER 22:51 → 8WST 03-09 00:17 → ENRESERV 03-09 01:55 → CANRESERV 03-09 01:55 → ENRESERV 03-09 02:04
PROVIDERS: ADMIT Internal Medicine; ATTEND Internal Medicine
DX: A41.9 Sepsis, unspecified organism (principal); G93.41 Metabolic encephalopathy; E44.0 Moderate protein-calorie malnutrition; Z93.0 Tracheostomy status; N39.0 Urinary tract infection, site not specified; N20.0 Calculus of kidney; G80.9 Cerebral palsy, unspecified; D63.8 Anemia in other chronic diseases classified elsewhere; E86.0 Dehydration; E87.6 Hypokalemia; G89.29 Other chronic pain; I10 Essential (primary) hypertension; J45.909 Unspecified asthma, uncomplicated; K56.41 Fecal impaction; Z82.49 Family history of ischemic heart disease and other diseases of the circulatory system; Z90.49 Acquired absence of other specified parts of digestive tract; Z93.1 Gastrostomy status; Z99.3 Dependence on wheelchair; Z43.1 Encounter for attention to gastrostomy; Z79.899 Other long term (current) drug therapy; Z68.1 Body mass index [BMI] 19.9 or less, adult
CPT/HCPCS: 36415; 71010; 74176; 80048; 80053; 80202; 80305; 81001; 83605; 83690; 83880; 84484; 85025; 85027; 87086; 93005; 96361; 96365; 96375; 97161; 99285; A6261; C1893; G0482; J1650; J1885; J1956; J2270; J2405; J2543; J3010; J3370; J3480; J3490; J7030

== ENCOUNTER 2017-03-22 16:18 | Inpatient (IN) | payer MEDICAID ==
[~2017-03-22] VITALS: Ht 147.3 cm; Wt 36.7 kg
[~2017-03-22 16:18] MED LIST changes: +FURO20TA4 PO; +HYDR-519 PO; +METO50TA5 PO; +PANT40TA4 PO; +SULF-292 PO
[2017-03-22] MEDS ORDERED: KETOROLAC 30MG/ML VIAL IV STA (18:40)
[2017-03-22] MEDS ORDERED: ONDANSETRON HCL 4MG/2ML VIAL IV STA (18:40)
[2017-03-22] MEDS ORDERED: SODIUM CHLORIDE 0.9% 1,000 ML IV ONE ×2 (18:40→22:05)
[2017-03-22 19:21] LABS: BASOPHILS % 0.8 % (0.0-2.0); EOSINOPHILS % 0.5 % (0.0-5.0); HEMATOCRIT. 34.2 % (36.0-48.0); HEMOGLOBIN. 11.2 g/dL (12.0-16.0); LYMPHOCYTES % 15.8 % (20.0-50.0); MEAN CORPUSCULAR HEMOGLOBIN 27.8 pg (28.0-32.0); MEAN CORPUSCULAR VOLUME 85.1 fL (81.0-99.0); MEAN PLATELET VOLUME 7.4 fl (7.4-10.4); MONOCYTES % 6.6 % (2.0-8.0); NEUTROPHILS % 76.3 % (40.0-76.0); PLATELET 356 x1000/uL (130-400); RED BLOOD CELL COUNT 4.02 mill/uL (4.2-5.4)
[2017-03-22 19:27] LABS: CHLORIDE 104 mEq/L (98-107); PROTHROMBIN TIME 10.7 sec (9.4-11.6)
[2017-03-22 19:32] LABS: CARBON DIOXIDE 23 mEq/L (21-32)
[2017-03-22 22:04] LABS: CLARITY URINE CLEAR (CLEAR); COLOR URINE YELLOW (YELLOW); GLUCOSE URINE NEGATIVE (NEGATIVE); KETONES URINE 1+ (NEGATIVE); LEUKOCYTE ESTERASE URINE 2+ (NEGATIVE); NITRITE URINE POSITIVE (NEGATIVE); OCCULT BLOOD URINE NEGATIVE (NEGATIVE); PH URINE 6.5 (4.5-8.0); PROTEIN URINE NEGATIVE (NEGATIVE)
[2017-03-22] MEDS ORDERED: CEFTRIAXONE 1 G PREMIX 50 ML IV ONE (22:15)
[2017-03-23] MEDS ORDERED: MAGNESIUM CITRATE 300ML SOLUTION PO ONE (00:30)
[2017-03-23] MEDS ORDERED: SODIUM CHLORIDE 0.9% 1,000 ML IV SCH (00:55)
[2017-03-23] MEDS ORDERED: IBUPROFEN 600MG TABLET PO PRN (01:00)
[2017-03-23] MEDS ORDERED: ACETAMINOPHEN 325MG TABLET PO PRN (01:00)
[2017-03-23] MEDS ORDERED: MORPHINE SULFATE 2 MG/ML CPJ (NOT FOR IM USE) IV ONE (01:00)
[2017-03-23] MEDS ORDERED: MORPHINE SULFATE 4 MG/ML CPJ (NOT FOR IM USE) IV SCH (01:19)
[2017-03-23 04:00] VITALS: BP 108/41
[2017-03-23 05:16] VITALS: BP 108/42
[2017-03-23] MEDS ORDERED: DEXT 5%/0.45% NACL KCL 20MEQ/L 1,000 ML IV SCH ×2 (06:30→09:00)
[2017-03-23] MEDS ORDERED: LEVOFLOXACIN 500MG PREMIX 100 ML IV SCH (06:30)
[2017-03-23 08:00] VITALS: BP 112/56
[2017-03-23 08:58] LABS: HEMATOCRIT 28.6 % (36.0-48.0); HEMOGLOBIN 9.3 g/dL (12.0-16.0); MEAN CORPUSCULAR HEMOGLOBIN 27.7 pg (28.0-32.0); MEAN CORPUSCULAR VOLUME 85.3 fL (81.0-99.0); PLATELET 303 x1000/uL (130-400); RED BLOOD CELL COUNT 3.36 mill/uL (4.2-5.4); RED CELL DISTRIBUTION WIDTH 16.8 % (11.6-14.6)
[2017-03-23] MEDS: DILTIAZEM HCL 180MG CAPSULE CD 24HR PO SCH (09:15)
[2017-03-23] MEDS ORDERED: PANTOPRAZOLE 40MG DR TABLET PO SCH (09:15)
[2017-03-23] MEDS: METOPROLOL TARTRATE 50MG TABLET PO SCH ×2 (09:15→20:41)
[2017-03-23] MEDS: BACLOFEN 10MG TABLET PO SCH ×3 (09:37→17:12)
[2017-03-23] MEDS: FUROSEMIDE 20MG TABLET PO SCH (09:38)
[2017-03-23] MEDS: MORPHINE SULFATE 4 MG/ML CPJ (NOT FOR IM USE) IV PRN ×3 (09:38→17:12)
[2017-03-23 11:25] LABS: AMYLASE 144 IU/L (25-115)
[2017-03-23 12:00] VITALS: BP 111/58
[2017-03-23] MEDS: DEXT 5%/0.45% NACL KCL 20MEQ/L 1,000 ML IV SCH (12:32)
[2017-03-23] MEDS: LEVOFLOXACIN 500MG PREMIX 100 ML IV SCH (13:33)
[2017-03-23] MEDS ORDERED: SORBITOL 70% SOLN 30ML PO SCH ×2 (14:15→18:15)
[2017-03-23 15:38] LABS: TOTAL IRON BINDING CAPACITY 388 ug/dL (250-450)
[2017-03-23 16:00] VITALS: BP 119/53
[2017-03-23 16:03] LABS: FOLIC ACID (FOLATE) SERUM 7.6 ng/mL (>5.38)
[2017-03-23] MEDS: SENNOSIDES/DOCUSATE SOD 8.6/50MG TABLET PO SCH ×2 (16:46→20:40)
[2017-03-23 20:00] VITALS: BP 115/71
[2017-03-23] MEDS: KETOROLAC 30MG/ML VIAL IV PRN (20:16)
[2017-03-23] MEDS: ATORVASTATIN CALCIUM 20MG TABLET PO SCH (20:40)
[2017-03-24] VITALS: BP 142/62
[2017-03-24] MEDS: MORPHINE SULFATE 4 MG/ML CPJ (NOT FOR IM USE) IV PRN (03:32)
[2017-03-24 04:00] VITALS: BP 127/62
[2017-03-24 08:00] VITALS: BP 121/62
[2017-03-24 08:06] LABS: AMYLASE 146 IU/L (25-115)
[2017-03-24] MEDS: DILTIAZEM HCL 180MG CAPSULE CD 24HR PO SCH (09:01)
[2017-03-24] MEDS: FUROSEMIDE 20MG TABLET PO SCH (09:01)
[2017-03-24] MEDS: SENNOSIDES/DOCUSATE SOD 8.6/50MG TABLET PO SCH ×2 (09:01→18:06)
[2017-03-24] MEDS: METOPROLOL TARTRATE 50MG TABLET PO SCH ×2 (09:02→21:00)
[2017-03-24] MEDS: FAMOTIDINE 20MG/2ML VIAL IV SCH (09:02)
[2017-03-24] MEDS: BACLOFEN 10MG TABLET PO SCH ×3 (09:02→18:06)
[2017-03-24] MEDS: DEXT 5%/0.45% NACL KCL 20MEQ/L 1,000 ML IV SCH (09:02)
[2017-03-24] MEDS: KETOROLAC 30MG/ML VIAL IV PRN (09:44)
[2017-03-24] MEDS: LEVOFLOXACIN 500MG PREMIX 100 ML IV SCH (09:49)
[2017-03-24] MEDS ORDERED: LORAZEPAM 0.5MG TABLET PO PRN (11:30)
[2017-03-24 12:23] VITALS: BP 108/60
[2017-03-24] MEDS: MORPHINE SULFATE 4 MG/ML CPJ (NOT FOR IM USE) IV SCH ×3 (13:00→20:46)
[2017-03-24 16:00] VITALS: BP 99/55
[2017-03-24 20:00] VITALS: BP 112/59
[2017-03-24] MEDS: ATORVASTATIN CALCIUM 20MG TABLET PO SCH (20:46)
[2017-03-25] MEDS: MORPHINE SULFATE 4 MG/ML CPJ (NOT FOR IM USE) IV SCH ×7 (00:18→21:52)
[2017-03-25 00:19] VITALS: BP 112/56
[2017-03-25 04:00] VITALS: BP 115/62
[2017-03-25] MEDS: DEXT 5%/0.45% NACL KCL 20MEQ/L 1,000 ML IV SCH ×2 (04:57→16:24)
[2017-03-25 06:49] LABS: HEMATOCRIT 35.2 % (36.0-48.0); HEMOGLOBIN 11.4 g/dL (12.0-16.0); MEAN CORPUSCULAR HEMOGLOBIN 27.7 pg (28.0-32.0); MEAN CORPUSCULAR VOLUME 85.8 fL (81.0-99.0); PLATELET 324 x1000/uL (130-400); RED CELL DISTRIBUTION WIDTH 17.1 % (11.6-14.6)
[2017-03-25 07:38] VITALS: BP 104/38
[2017-03-25 07:50] LABS: CHLORIDE 105 mEq/L (98-107)
[2017-03-25 07:59] LABS: CARBON DIOXIDE 24 mEq/L (21-32)
[2017-03-25] MEDS: METOPROLOL TARTRATE 50MG TABLET PO SCH ×3 (09:00→20:38)
[2017-03-25] MEDS: DILTIAZEM HCL 180MG CAPSULE CD 24HR PO SCH ×2 (09:00→09:38)
[2017-03-25] MEDS: BACLOFEN 10MG TABLET PO SCH ×3 (09:37→16:24)
[2017-03-25] MEDS: FAMOTIDINE 20MG/2ML VIAL IV SCH (09:37)
[2017-03-25] MEDS: SENNOSIDES/DOCUSATE SOD 8.6/50MG TABLET PO SCH ×2 (09:38→17:15)
[2017-03-25] MEDS: FUROSEMIDE 20MG TABLET PO SCH (09:38)
[2017-03-25 11:57] VITALS: BP 112/52
[2017-03-25] MEDS: LEVOFLOXACIN 500MG PREMIX 100 ML IV SCH (13:11)
[2017-03-25 16:10] VITALS: BP 122/65
[2017-03-25] MEDS: KETOROLAC 30MG/ML VIAL IV PRN (18:04)
[2017-03-25 20:00] VITALS: BP 99/56
[2017-03-25] MEDS: ATORVASTATIN CALCIUM 20MG TABLET PO SCH (20:37)
[2017-03-26] VITALS (7 sets, daily range): BP systolic 102–120; BP diastolic 63–74
[2017-03-26] MEDS: KETOROLAC 30MG/ML VIAL IV PRN (00:11)
[2017-03-26] MEDS: MORPHINE SULFATE 4 MG/ML CPJ (NOT FOR IM USE) IV SCH ×7 (03:11→21:55)
[2017-03-26 04:18] LABS: OVA & PARASITE EXAM Final report (.)
[2017-03-26] MEDS: DEXT 5%/0.45% NACL KCL 20MEQ/L 1,000 ML IV SCH ×2 (06:09→23:47)
[2017-03-26 06:22] LABS: HEMATOCRIT 30.4 % (36.0-48.0); MEAN CORPUSCULAR VOLUME 85.2 fL (81.0-99.0); PLATELET 257 x1000/uL (130-400); RED BLOOD CELL COUNT 3.57 mill/uL (4.2-5.4); RED CELL DISTRIBUTION WIDTH 16.4 % (11.6-14.6)
[2017-03-26 06:52] LABS: CARBON DIOXIDE 24 mEq/L (21-32); CHLORIDE 100 mEq/L (98-107)
[2017-03-26] MEDS: FAMOTIDINE 20MG/2ML VIAL IV SCH (09:49)
[2017-03-26] MEDS: FUROSEMIDE 20MG TABLET PO SCH (09:52)
[2017-03-26] MEDS: SENNOSIDES/DOCUSATE SOD 8.6/50MG TABLET PO SCH ×2 (09:52→17:24)
[2017-03-26] MEDS: DILTIAZEM HCL 180MG CAPSULE CD 24HR PO SCH (09:53)
[2017-03-26] MEDS: BACLOFEN 10MG TABLET PO SCH ×3 (09:53→17:24)
[2017-03-26] MEDS: METOPROLOL TARTRATE 50MG TABLET PO SCH ×2 (09:53→20:43)
[2017-03-26 10:12] LABS: SACCHAROMYCES CEREVISIAE IGG 34.8 Units (0.0-24.9); SACCHAROMYCES CEREVISIAE IGM <20.0 Units (0.0-24.9)
[2017-03-26] MEDS: LEVOFLOXACIN 500MG PREMIX 100 ML IV SCH (10:44)
[2017-03-26 13:12] LABS: ATYPICAL pANCA <1:20 titer (Neg:<1:20)
[2017-03-26] MEDS ORDERED: MEROPENEM 500 MG in SODIUM CHLORIDE 0.9% 50 ML IV SCH (15:00)
[2017-03-26] MEDS: CEFEPIME 1,000 MG in DEXTROSE 5% WATER 50 ML IV SCH (17:23)
[2017-03-26] MEDS: FERROUS SULFATE 325MG TABLET PO SCH (17:24)
[2017-03-26] MEDS: ASCORBIC ACID 500 MG TABLET PO SCH (17:26)
[2017-03-26] MEDS: ATORVASTATIN CALCIUM 20MG TABLET PO SCH (20:43)
[2017-03-27] VITALS (7 sets, daily range): BP systolic 102–122; BP diastolic 60–70
[2017-03-27] MEDS: MORPHINE SULFATE 4 MG/ML CPJ (NOT FOR IM USE) IV SCH ×8 (00:44→21:51)
[2017-03-27] MEDS: CEFEPIME 1,000 MG in DEXTROSE 5% WATER 50 ML IV SCH ×2 (05:29→18:04)
[2017-03-27 07:47] LABS: HEMATOCRIT 32.9 % (36.0-48.0); HEMOGLOBIN 10.6 g/dL (12.0-16.0); MEAN CORPUSCULAR HEMOGLOBIN 27.5 pg (28.0-32.0); MEAN CORPUSCULAR VOLUME 85.3 fL (81.0-99.0); PLATELET 278 x1000/uL (130-400); RED BLOOD CELL COUNT 3.85 mill/uL (4.2-5.4); RED CELL DISTRIBUTION WIDTH 16.4 % (11.6-14.6)
[2017-03-27] MEDS: DEXT 5%/0.45% NACL KCL 20MEQ/L 1,000 ML IV SCH (08:27)
[2017-03-27] MEDS: FERROUS SULFATE 325MG TABLET PO SCH ×2 (08:28→18:04)
[2017-03-27] MEDS: FAMOTIDINE 20MG/2ML VIAL IV SCH (08:28)
[2017-03-27] MEDS: DILTIAZEM HCL 180MG CAPSULE CD 24HR PO SCH (08:28)
[2017-03-27] MEDS: BACLOFEN 10MG TABLET PO SCH ×3 (08:28→18:03)
[2017-03-27] MEDS: FUROSEMIDE 20MG TABLET PO SCH (08:29)
[2017-03-27] MEDS: SENNOSIDES/DOCUSATE SOD 8.6/50MG TABLET PO SCH ×2 (08:29→18:03)
[2017-03-27] MEDS: METOPROLOL TARTRATE 50MG TABLET PO SCH ×2 (08:29→21:57)
[2017-03-27] MEDS: ASCORBIC ACID 500 MG TABLET PO SCH ×2 (08:36→18:03)
[2017-03-27 09:13] LABS: CARBON DIOXIDE 25 mEq/L (21-32); CHLORIDE 108 mEq/L (98-107)
[2017-03-27] MEDS: ENOXAPARIN 30MG/0.3ML SYR SUBCUT SCH (12:14)
[2017-03-27 16:06] LABS: AMYLASE 210 IU/L (25-115)
[2017-03-27] MEDS: ATORVASTATIN CALCIUM 20MG TABLET PO SCH (21:57)
[2017-03-28] VITALS: BP 111/63
[2017-03-28] MEDS: MORPHINE SULFATE 4 MG/ML CPJ (NOT FOR IM USE) IV SCH ×7 (00:50→21:43)
[2017-03-28 04:00] VITALS: BP 117/47
[2017-03-28] MEDS: DEXT 5%/0.45% NACL KCL 20MEQ/L 1,000 ML IV SCH ×2 (04:10→12:27)
[2017-03-28] MEDS: CEFEPIME 1,000 MG in DEXTROSE 5% WATER 50 ML IV SCH ×2 (06:37→17:27)
[2017-03-28] MEDS: FAMOTIDINE 20MG/2ML VIAL IV SCH (09:15)
[2017-03-28] MEDS: SENNOSIDES/DOCUSATE SOD 8.6/50MG TABLET PO SCH ×2 (09:15→16:12)
[2017-03-28] MEDS: ENOXAPARIN 30MG/0.3ML SYR SUBCUT SCH (09:15)
[2017-03-28] MEDS: METOPROLOL TARTRATE 50MG TABLET PO SCH ×2 (09:16→21:42)
[2017-03-28] MEDS: DILTIAZEM HCL 180MG CAPSULE CD 24HR PO SCH (09:16)
[2017-03-28] MEDS: FERROUS SULFATE 325MG TABLET PO SCH ×2 (09:16→17:27)
[2017-03-28] MEDS: FUROSEMIDE 20MG TABLET PO SCH (09:16)
[2017-03-28] MEDS: BACLOFEN 10MG TABLET PO SCH ×3 (09:16→16:12)
[2017-03-28] MEDS: ASCORBIC ACID 500 MG TABLET PO SCH ×2 (09:24→17:27)
[2017-03-28 12:00] VITALS: BP 119/72
[2017-03-28 17:02] VITALS: BP 125/52
[2017-03-28 20:00] VITALS: BP 138/56
[2017-03-28] MEDS: ATORVASTATIN CALCIUM 20MG TABLET PO SCH (21:42)
[2017-03-29] VITALS: BP 117/50
[2017-03-29] MEDS: MORPHINE SULFATE 4 MG/ML CPJ (NOT FOR IM USE) IV SCH ×7 (00:56→23:59)
[2017-03-29] MEDS: ONDANSETRON HCL 4MG/2ML VIAL IV PRN (00:59)
[2017-03-29] MEDS: DEXT 5%/0.45% NACL KCL 20MEQ/L 1,000 ML IV SCH ×2 (01:05→15:45)
[2017-03-29 04:00] VITALS: BP 102/51
[2017-03-29] MEDS: CEFEPIME 1,000 MG in DEXTROSE 5% WATER 50 ML IV SCH ×2 (06:04→20:03)
[2017-03-29 08:00] VITALS: BP 123/58
[2017-03-29] MEDS: FERROUS SULFATE 325MG TABLET PO SCH ×2 (08:55→16:33)
[2017-03-29] MEDS: ASCORBIC ACID 500 MG TABLET PO SCH ×2 (08:55→16:33)
[2017-03-29] MEDS: FAMOTIDINE 20MG/2ML VIAL IV SCH (08:56)
[2017-03-29] MEDS: FUROSEMIDE 20MG TABLET PO SCH (08:57)
[2017-03-29] MEDS: SENNOSIDES/DOCUSATE SOD 8.6/50MG TABLET PO SCH ×2 (08:57→16:33)
[2017-03-29] MEDS: ENOXAPARIN 30MG/0.3ML SYR SUBCUT SCH (08:57)
[2017-03-29] MEDS: DILTIAZEM HCL 180MG CAPSULE CD 24HR PO SCH (08:57)
[2017-03-29] MEDS: BACLOFEN 10MG TABLET PO SCH ×3 (08:57→16:33)
[2017-03-29] MEDS: METOPROLOL TARTRATE 50MG TABLET PO SCH ×2 (08:58→20:05)
[2017-03-29 12:00] VITALS: BP 109/63
[2017-03-29 19:02] VITALS: BP 116/67
[2017-03-29 20:00] VITALS: BP 117/69
[2017-03-29] MEDS: ATORVASTATIN CALCIUM 20MG TABLET PO SCH (20:04)
[2017-03-30] VITALS: BP 115/63
[2017-03-30 04:00] VITALS: BP 104/56
[2017-03-30] MEDS: MORPHINE SULFATE 4 MG/ML CPJ (NOT FOR IM USE) IV SCH ×5 (04:19→19:59)
[2017-03-30] MEDS: CEFEPIME 1,000 MG in DEXTROSE 5% WATER 50 ML IV SCH ×2 (05:43→18:04)
[2017-03-30] MEDS: DEXT 5%/0.45% NACL KCL 20MEQ/L 1,000 ML IV SCH ×2 (05:50→16:45)
[2017-03-30 07:14] LABS: MEAN CORPUSCULAR HEMOGLOBIN 27.9 pg (28.0-32.0); MEAN CORPUSCULAR VOLUME 86.2 fL (81.0-99.0); PLATELET 215 x1000/uL (130-400); RED BLOOD CELL COUNT 4.28 mill/uL (4.2-5.4); RED CELL DISTRIBUTION WIDTH 15.8 % (11.6-14.6)
[2017-03-30 07:41] VITALS: BP 105/64
[2017-03-30 07:41] LABS: HEMATOCRIT 35.9 % (36.0-48.0)
[2017-03-30] MEDS: ENOXAPARIN 30MG/0.3ML SYR SUBCUT SCH (08:46)
[2017-03-30] MEDS: DILTIAZEM HCL 180MG CAPSULE CD 24HR PO SCH ×2 (08:46→08:49)
[2017-03-30] MEDS: FERROUS SULFATE 325MG TABLET PO SCH ×2 (08:47→16:45)
[2017-03-30] MEDS: BACLOFEN 10MG TABLET PO SCH ×3 (08:47→16:45)
[2017-03-30] MEDS: ASCORBIC ACID 500 MG TABLET PO SCH ×2 (08:47→16:53)
[2017-03-30] MEDS: METOPROLOL TARTRATE 50MG TABLET PO SCH ×3 (08:47→20:28)
[2017-03-30] MEDS: FUROSEMIDE 20MG TABLET PO SCH (08:47)
[2017-03-30] MEDS: SENNOSIDES/DOCUSATE SOD 8.6/50MG TABLET PO SCH ×2 (08:47→16:45)
[2017-03-30] MEDS: FAMOTIDINE 20MG/2ML VIAL IV SCH (08:48)
[2017-03-30 11:34] LABS: CARBON DIOXIDE 19 mEq/L (21-32); CHLORIDE 109 mEq/L (98-107)
[2017-03-30 11:57] VITALS: BP 105/55
[2017-03-30] MEDS: VITAMINS A AND D OINT TUBE TOP SCH (13:09)
[2017-03-30 16:00] VITALS: BP 135/72
[2017-03-30] MEDS: ONDANSETRON HCL 4MG/2ML VIAL IV PRN (18:09)
[2017-03-30 20:00] VITALS: BP 138/80
[2017-03-30] MEDS: ATORVASTATIN CALCIUM 20MG TABLET PO SCH (20:27)
[2017-03-31] VITALS: BP 116/70
[2017-03-31] MEDS: MORPHINE SULFATE 4 MG/ML CPJ (NOT FOR IM USE) IV SCH ×6 (00:04→22:25)
[2017-03-31 04:00] VITALS: BP 122/72
[2017-03-31] MEDS: DEXT 5%/0.45% NACL KCL 20MEQ/L 1,000 ML IV SCH (04:26)
[2017-03-31] MEDS: CEFEPIME 1,000 MG in DEXTROSE 5% WATER 50 ML IV SCH ×2 (05:35→18:16)
[2017-03-31 08:00] VITALS: BP 114/73
[2017-03-31] MEDS: VITAMINS A AND D OINT TUBE TOP SCH (08:08)
[2017-03-31] MEDS: ASCORBIC ACID 500 MG TABLET PO SCH ×2 (08:09→16:50)
[2017-03-31] MEDS: BACLOFEN 10MG TABLET PO SCH ×4 (08:09→16:45)
[2017-03-31] MEDS: ENOXAPARIN 30MG/0.3ML SYR SUBCUT SCH (08:09)
[2017-03-31] MEDS: FERROUS SULFATE 325MG TABLET PO SCH ×2 (08:09→16:44)
[2017-03-31] MEDS: FUROSEMIDE 20MG TABLET PO SCH (08:10)
[2017-03-31] MEDS: FAMOTIDINE 20MG/2ML VIAL IV SCH (08:10)
[2017-03-31] MEDS: SENNOSIDES/DOCUSATE SOD 8.6/50MG TABLET PO SCH ×3 (08:10→16:45)
[2017-03-31] MEDS: DILTIAZEM HCL 180MG CAPSULE CD 24HR PO SCH (08:10)
[2017-03-31] MEDS: METOPROLOL TARTRATE 50MG TABLET PO SCH ×2 (08:11→22:26)
[2017-03-31 12:00] VITALS: BP 113/70
[2017-03-31 16:00] VITALS: BP 113/68
[2017-03-31] MEDS: ONDANSETRON HCL 4MG/2ML VIAL IV PRN (18:36)
[2017-03-31 20:00] VITALS: BP 124/92
[2017-03-31] MEDS: ATORVASTATIN CALCIUM 20MG TABLET PO SCH (22:26)
[2017-04-01] VITALS: BP 117/72
[2017-04-01 04:00] VITALS: BP 112/61
[2017-04-01] MEDS: MORPHINE SULFATE 4 MG/ML CPJ (NOT FOR IM USE) IV SCH ×6 (04:33→20:32)
[2017-04-01 08:00] VITALS: BP 122/60
[2017-04-01] MEDS: ENOXAPARIN 30MG/0.3ML SYR SUBCUT SCH (08:43)
[2017-04-01] MEDS: CEFEPIME 1,000 MG in DEXTROSE 5% WATER 50 ML IV SCH ×2 (08:43→18:16)
[2017-04-01] MEDS: DEXT 5%/0.45% NACL KCL 20MEQ/L 1,000 ML IV SCH ×2 (08:43→09:20)
[2017-04-01] MEDS: ASCORBIC ACID 500 MG TABLET PO SCH ×2 (08:44→16:23)
[2017-04-01] MEDS: BACLOFEN 10MG TABLET PO SCH ×3 (08:44→16:16)
[2017-04-01] MEDS: FUROSEMIDE 20MG TABLET PO SCH (08:44)
[2017-04-01] MEDS: DILTIAZEM HCL 180MG CAPSULE CD 24HR PO SCH (08:44)
[2017-04-01] MEDS: FAMOTIDINE 20MG/2ML VIAL IV SCH (08:45)
[2017-04-01] MEDS: METOPROLOL TARTRATE 50MG TABLET PO SCH ×2 (08:45→20:31)
[2017-04-01] MEDS: SENNOSIDES/DOCUSATE SOD 8.6/50MG TABLET PO SCH ×2 (08:45→16:16)
[2017-04-01] MEDS: FERROUS SULFATE 325MG TABLET PO SCH ×2 (08:45→16:16)
[2017-04-01] MEDS: VITAMINS A AND D OINT TUBE TOP SCH (08:47)
[2017-04-01 12:00] VITALS: BP 128/75
[2017-04-01] MEDS: ONDANSETRON HCL 4MG/2ML VIAL IV PRN (13:11)
[2017-04-01 16:00] VITALS: BP 119/73
[2017-04-01 20:00] VITALS: BP 130/77
[2017-04-01] MEDS: ATORVASTATIN CALCIUM 20MG TABLET PO SCH (20:31)
[2017-04-02] VITALS (7 sets, daily range): BP systolic 101–124; BP diastolic 57–72
[2017-04-02] MEDS: MORPHINE SULFATE 2 MG/ML CPJ (NOT FOR IM USE) IV SCH ×6 (00:58→20:30)
[2017-04-02] MEDS: DEXT 5%/0.45% NACL KCL 20MEQ/L 1,000 ML IV SCH ×3 (00:59→20:38)
[2017-04-02 01:00] LABS: CLARITY URINE CLOUDY (CLEAR); COLOR URINE YELLOW (YELLOW); GLUCOSE URINE NEGATIVE (NEGATIVE); KETONES URINE NEGATIVE (NEGATIVE); LEUKOCYTE ESTERASE URINE 3+ (NEGATIVE); NITRITE URINE NEGATIVE (NEGATIVE); OCCULT BLOOD URINE 2+ (NEGATIVE); PH URINE 6.5 (4.5-8.0); PROTEIN URINE NEGATIVE (NEGATIVE); SPECIFIC GRAVITY URINE 1.011 (1.005-1.030); UROBILINOGEN URINE 0.2 E.U./dL (0.2-1.0)
[2017-04-02] MEDS: CEFEPIME 1,000 MG in DEXTROSE 5% WATER 50 ML IV SCH ×2 (06:26→17:49)
[2017-04-02] MEDS: FUROSEMIDE 20MG TABLET PO SCH (08:23)
[2017-04-02] MEDS: SENNOSIDES/DOCUSATE SOD 8.6/50MG TABLET PO SCH ×2 (08:23→17:56)
[2017-04-02] MEDS: DILTIAZEM HCL 180MG CAPSULE CD 24HR PO SCH (08:23)
[2017-04-02] MEDS: BACLOFEN 10MG TABLET PO SCH ×3 (08:23→17:52)
[2017-04-02] MEDS: METOPROLOL TARTRATE 50MG TABLET PO SCH ×2 (08:23→21:05)
[2017-04-02] MEDS: FERROUS SULFATE 325MG TABLET PO SCH ×2 (08:23→17:52)
[2017-04-02] MEDS: ENOXAPARIN 30MG/0.3ML SYR SUBCUT SCH (08:24)
[2017-04-02] MEDS: VITAMINS A AND D OINT TUBE TOP SCH (08:39)
[2017-04-02] MEDS: FAMOTIDINE 20MG/2ML VIAL IV SCH (08:39)
[2017-04-02] MEDS: ASCORBIC ACID 500 MG TABLET PO SCH ×2 (08:39→17:52)
[2017-04-02] MEDS: ATORVASTATIN CALCIUM 20MG TABLET PO SCH (21:05)
[2017-04-03] VITALS: BP 102/61
[2017-04-03] MEDS: MORPHINE SULFATE 2 MG/ML CPJ (NOT FOR IM USE) IV SCH ×4 (00:41→11:50)
[2017-04-03 04:00] VITALS: BP 103/55
[2017-04-03] MEDS: CEFEPIME 1,000 MG in DEXTROSE 5% WATER 50 ML IV SCH (05:07)
[2017-04-03 08:00] VITALS: BP 101/59
[2017-04-03] MEDS: METOPROLOL TARTRATE 50MG TABLET PO SCH (08:01)
[2017-04-03] MEDS: FAMOTIDINE 20MG/2ML VIAL IV SCH (08:09)
[2017-04-03] MEDS: ENOXAPARIN 30MG/0.3ML SYR SUBCUT SCH (08:09)
[2017-04-03] MEDS: FERROUS SULFATE 325MG TABLET PO SCH (08:09)
[2017-04-03] MEDS: SENNOSIDES/DOCUSATE SOD 8.6/50MG TABLET PO SCH (08:09)
[2017-04-03] MEDS: ASCORBIC ACID 500 MG TABLET PO SCH (08:09)
[2017-04-03] MEDS: BACLOFEN 10MG TABLET PO SCH (08:09)
[2017-04-03] MEDS: DILTIAZEM HCL 180MG CAPSULE CD 24HR PO SCH (09:00)
[2017-04-03] MEDS: FUROSEMIDE 20MG TABLET PO SCH (09:00)
[2017-04-03 11:56] VITALS: BP 104/57
== END 2017-04-03 13:20 | disposition home health service (06) | DRG 720 ==
LOC: ER 18:09 → 8WST 03-23 00:54 → ENRESERV 03-23 02:25
PROVIDERS: ADMIT Internal Medicine; ATTEND Internal Medicine
PROC: 02HV33Z Insertion of Infusion Device into Superior Vena Cava, Percutaneous Approach (ICD-10-PCS; principal; 2017-03-25)
PROC: B5181ZA Fluoroscopy of Superior Vena Cava using Low Osmolar Contrast, Guidance (ICD-10-PCS; 2017-03-25)
PROC: B548ZZA Ultrasonography of Superior Vena Cava, Guidance (ICD-10-PCS; 2017-03-25)
DX: A41.9 Sepsis, unspecified organism (principal); K85.90 Acute pancreatitis without necrosis or infection, unspecified; J96.10 Chronic respiratory failure, unspecified whether with hypoxia or hypercapnia; Z93.0 Tracheostomy status; E44.0 Moderate protein-calorie malnutrition; N39.0 Urinary tract infection, site not specified; D64.9 Anemia, unspecified; G40.909 Epilepsy, unspecified, not intractable, without status epilepticus; J45.909 Unspecified asthma, uncomplicated; N81.10 Cystocele, unspecified; N13.2 Hydronephrosis with renal and ureteral calculous obstruction; G89.29 Other chronic pain; M79.605 Pain in left leg; M79.604 Pain in right leg; Z96.649 Presence of unspecified artificial hip joint; G80.9 Cerebral palsy, unspecified; K62.89 Other specified diseases of anus and rectum; I10 Essential (primary) hypertension; B18.2 Chronic viral hepatitis C; Z68.1 Body mass index [BMI] 19.9 or less, adult; Z82.49 Family history of ischemic heart disease and other diseases of the circulatory system; Z90.49 Acquired absence of other specified parts of digestive tract; Z99.3 Dependence on wheelchair; Z79.899 Other long term (current) drug therapy
CPT/HCPCS: 36415; 36569; 74000; 74176; 76700; 76937; 77001; 78227; 80053; 80076; 81001; 81025; 82150; 82270; 82607; 82728; 82746; 82962; 83540; 83550; 83605; 83690; 84478; 85025; 85027; 85610; 86256; 86671; 87015; 87040; 87045; 87077; 87086; 87177; 87186; 87209; 87427; 87449; 87493; 89055; 93005; 96361; 96365; 96366; 96372; 96375; 97163; 97166; 97535; 99285; A9537; C1725; C1893; G0378; J0692; J0696; J1650; J1885; J1956; J2185; J2270; J2405; J3490; J7030; J7060; A4315

== ENCOUNTER 2017-07-24 15:00 | Emergency (ER) | payer MEDICAID ==
[~2017-07-24] VITALS: Ht 152.4 cm; Wt 40.0 kg
[~2017-07-24 15:00] MED LIST changes: +METO-539 PO; -METO50TA5 PO; -SULF-292 PO
[2017-07-24 17:10] LABS: CLARITY URINE CLEAR (CLEAR); COLOR URINE YELLOW (YELLOW); KETONES URINE NEGATIVE (NEGATIVE); LEUKOCYTE ESTERASE URINE 2+ (NEGATIVE); NITRITE URINE NEGATIVE (NEGATIVE); OCCULT BLOOD URINE TRACE (NEGATIVE); PH URINE 6.5 (4.5-8.0); PROTEIN URINE NEGATIVE (NEGATIVE); SPECIFIC GRAVITY URINE 1.016 (1.005-1.030); UROBILINOGEN URINE 0.2 E.U./dL (0.2-1.0)
[2017-07-24 19:45] VITALS: BP 135/72
== END 2017-07-24 19:50 | disposition home or self-care (01) ==
LOC: ER 15:06
DX: R33.9 Retention of urine, unspecified (principal); G80.9 Cerebral palsy, unspecified; I10 Essential (primary) hypertension
CPT/HCPCS: 51702; 81001; 99284; Z7610; A4315

== ENCOUNTER 2018-06-27 07:10 | Inpatient (IN) | payer OTHER ==
[~2018-06-27] VITALS: Ht 162.6 cm; Wt 45.4 kg
[~2018-06-27 07:10] MED LIST changes: +DILT180C66 PO; -DILT180C69 PO; +FAMO20TA8 PO; -HYDR-519 PO; -PANT40TA4 PO; +TAMS-11 PO
[2018-06-27] MEDS ORDERED: ONDANSETRON HCL 4MG/2ML INJ IV STA (07:55)
[2018-06-27] MEDS ORDERED: MORPHINE SULFATE 4 MG/ML CPJ (NOT FOR IM USE) IV STA (07:55)
[2018-06-27 09:03] LABS: BASOPHILS % 0.6 % (0.0-2.0); EOSINOPHILS % 3.2 % (0.0-5.0); HEMATOCRIT. 31.9 % (36.0-48.0); LYMPHOCYTES % 17.5 % (20.0-50.0); MEAN CORPUSCULAR HEMOGLOBIN 24.5 pg (28.0-32.0); MEAN CORPUSCULAR VOLUME 78.2 fL (81.0-99.0); MEAN PLATELET VOLUME 7.6 fl (7.4-10.4); MONOCYTES % 9.8 % (2.0-8.0); NEUTROPHILS % 68.9 % (40.0-76.0); PLATELET 342 x1000/uL (130-400); RED BLOOD CELL COUNT 4.08 mill/uL (4.2-5.4); RED CELL DISTRIBUTION WIDTH 19.4 % (11.6-14.6)
[2018-06-27 09:04] LABS: CHLORIDE 109 mEq/L (98-107); PROTHROMBIN TIME 10.5 sec (9.1-11.1)
[2018-06-27] MEDS ORDERED: MORPHINE SULFATE 4 MG/ML CPJ (NOT FOR IM USE) IV ONE ×2 (10:30→16:19)
[2018-06-27 16:30] LABS: CLARITY URINE CLOUDY (CLEAR); COLOR URINE YELLOW (YELLOW); KETONES URINE NEGATIVE (NEGATIVE); LEUKOCYTE ESTERASE URINE 2+ (NEGATIVE); NITRITE URINE NEGATIVE (NEGATIVE); OCCULT BLOOD URINE 3+ (NEGATIVE); PH URINE 5.5 (4.5-8.0); PROTEIN URINE 2+ (NEGATIVE); UROBILINOGEN URINE 0.2 E.U./dL (0.2-1.0)
[2018-06-27 20:00] VITALS: BP 130/58
[2018-06-27] MEDS ORDERED: ACETAMINOPHEN 325MG TABLET PO PRN (20:30)
[2018-06-27] MEDS ORDERED: IPRATROPIUM/ALBUTEROL 0.5-3(2.5)MG/3ML NEB INH PRN (20:30)
[2018-06-27] MEDS ORDERED: ONDANSETRON HCL 4MG/2ML INJ IV PRN (20:30)
[2018-06-27 21:00] VITALS: BP 130/58
[2018-06-27] MEDS: ATORVASTATIN CALCIUM 20MG TABLET PO SCH (22:00)
[2018-06-27] MEDS: METOPROLOL TARTRATE 50MG TABLET PO SCH (22:02)
[2018-06-27] MEDS: DILTIAZEM HCL 180MG CAPSULE CD 24HR PO SCH (22:03)
[2018-06-27] MEDS: ENOXAPARIN 30MG/0.3ML SYR SUBCUT SCH (22:04)
[2018-06-27] MEDS: HYDROCODONE/ACETAMINOPHEN 5/325MG TABLET PO PRN (22:05)
[2018-06-27] MEDS: SODIUM CHLORIDE 0.9% 1,000 ML IV SCH (22:06)
[2018-06-28] VITALS: BP 123/66
[2018-06-28 03:58] VITALS: BP 109/58
[2018-06-28] MEDS: HYDROCODONE/ACETAMINOPHEN 5/325MG TABLET PO PRN ×4 (04:08→21:25)
[2018-06-28 08:10] LABS: EOSINOPHILS % 2.2 % (0.0-5.0); HEMATOCRIT. 27.2 % (36.0-48.0); HEMOGLOBIN. 8.7 g/dL (12.0-16.0); LYMPHOCYTES % 13.3 % (20.0-50.0); MEAN CORPUSCULAR HEMOGLOBIN 24.8 pg (28.0-32.0); MEAN CORPUSCULAR VOLUME 77.9 fL (81.0-99.0); MONOCYTES % 8.7 % (2.0-8.0); NEUTROPHILS % 74.8 % (40.0-76.0); PLATELET 291 x1000/uL (130-400); RED BLOOD CELL COUNT 3.49 mill/uL (4.2-5.4); RED CELL DISTRIBUTION WIDTH 18.7 % (11.6-14.6)
[2018-06-28 08:30] LABS: CHLORIDE 111 mEq/L (98-107)
[2018-06-28] MEDS: METOPROLOL TARTRATE 50MG TABLET PO SCH ×2 (09:00→21:15)
[2018-06-28 09:10] VITALS: BP 105/28
[2018-06-28] MEDS: DILTIAZEM HCL 180MG CAPSULE CD 24HR PO SCH (09:45)
[2018-06-28] MEDS: TAMSULOSIN HCL 0.4MG SR CAPSULE PO SCH (09:45)
[2018-06-28] MEDS: SODIUM CHLORIDE 0.9% 1,000 ML IV SCH ×2 (10:15→20:45)
[2018-06-28 12:00] VITALS: BP 103/40
[2018-06-28 16:00] VITALS: BP 110/45
[2018-06-28 16:27] VITALS: BP 104/40
[2018-06-28] MEDS ORDERED: POTASSIUM CHLORIDE INJ 40 MEQ in DEXT 5% WATER 250 ML IV SCH (18:00)
[2018-06-28] MEDS: ENOXAPARIN 30MG/0.3ML SYR SUBCUT SCH (21:14)
[2018-06-28] MEDS: ATORVASTATIN CALCIUM 20MG TABLET PO SCH (21:14)
[2018-06-29] VITALS (7 sets, daily range): BP systolic 104–169; BP diastolic 48–88
[2018-06-29] MEDS: HYDROCODONE/ACETAMINOPHEN 5/325MG TABLET PO PRN ×3 (03:28→17:20)
[2018-06-29] MEDS: DILTIAZEM HCL 180MG CAPSULE CD 24HR PO SCH ×2 (09:00→17:19)
[2018-06-29] MEDS: METOPROLOL TARTRATE 50MG TABLET PO SCH ×2 (09:00→17:20)
[2018-06-29] MEDS: TAMSULOSIN HCL 0.4MG SR CAPSULE PO SCH (09:12)
[2018-06-29 17:08] LABS: CHLORIDE 115 mEq/L (98-107)
[2018-06-29] MEDS: SODIUM CHLORIDE 0.9% 1,000 ML IV SCH ×2 (17:21→17:23)
== END 2018-06-29 20:05 | disposition home or self-care (01) | DRG 463 ==
LOC: ER 07:19 → 8WST 11:09 → EDBEDREQ 11:11 → ENRESERV 15:33
PROVIDERS: ADMIT Internal Medicine; ATTEND Internal Medicine
DX: N39.0 Urinary tract infection, site not specified (principal); Z93.0 Tracheostomy status; D64.9 Anemia, unspecified; E86.0 Dehydration; G80.8 Other cerebral palsy; G40.909 Epilepsy, unspecified, not intractable, without status epilepticus; G89.29 Other chronic pain; I10 Essential (primary) hypertension; J45.909 Unspecified asthma, uncomplicated; L98.429 Non-pressure chronic ulcer of back with unspecified severity; E87.6 Hypokalemia; Z79.899 Other long term (current) drug therapy; Z90.49 Acquired absence of other specified parts of digestive tract
CPT/HCPCS: 36415; 71045; 80048; 83605; 84145; 84484; 87077; 87186; 93005; 99285; J1650; J2270; J2405; J3480; J7030; J7060

== ENCOUNTER 2018-08-12 07:39 | Inpatient (IN) | payer OTHER ==
[~2018-08-12] VITALS: Ht 147.3 cm; Wt 44.2 kg
[2018-08-12] MEDS ORDERED: ONDANSETRON HCL 4MG/2ML INJ IV STA (08:13)
[2018-08-12] MEDS ORDERED: MORPHINE SULFATE 4 MG/ML CPJ (NOT FOR IM USE) IV STA (08:13)
[2018-08-12] MEDS ORDERED: SODIUM CHLORIDE 0.9% 1,000 ML IV ONE (08:13)
[2018-08-12 08:54] LABS: BASOPHILS % 0.5 % (0.0-2.0); HEMATOCRIT. 37.7 % (36.0-48.0); HEMOGLOBIN. 11.6 g/dL (12.0-16.0); LYMPHOCYTES % 8.2 % (20.0-50.0); MEAN CORPUSCULAR HEMOGLOBIN 24.2 pg (28.0-32.0); MEAN CORPUSCULAR VOLUME 78.8 fL (81.0-99.0); MEAN PLATELET VOLUME 7.5 fl (7.4-10.4); MONOCYTES % 5.5 % (2.0-8.0); NEUTROPHILS % 83.8 % (40.0-76.0); PLATELET 536 x1000/uL (130-400); RED BLOOD CELL COUNT 4.78 mill/uL (4.2-5.4); RED CELL DISTRIBUTION WIDTH 19.4 % (11.6-14.6)
[2018-08-12 08:59] LABS: CHLORIDE 107 mEq/L (98-107)
[2018-08-12 09:00] LABS: INR 1.1; PROTHROMBIN TIME 10.7 sec (9.1-11.1)
[2018-08-12] MEDS ORDERED: IOHEXOL-300 100 ML BOTTLE ONE (10:01)
[2018-08-12] MEDS ORDERED: PIPERACILLIN/TAZOBACTAM 3.375GM/50ML PREMIX IV ONE (10:30)
[2018-08-12] MEDS ORDERED: SODIUM CHLORIDE 0.9% 1000ML BAG (SEPSIS BOLUS) IV ONE (10:45)
[2018-08-12] MEDS: VANCOMYCIN 1 G PREMIX 200 ML IV SCH ×2 (11:29→13:36)
[2018-08-12 11:39] LABS: CLARITY URINE CLEAR (CLEAR); COLOR URINE YELLOW (YELLOW); KETONES URINE NEGATIVE (NEGATIVE); LEUKOCYTE ESTERASE URINE 2+ (NEGATIVE); NITRITE URINE NEGATIVE (NEGATIVE); OCCULT BLOOD URINE 2+ (NEGATIVE); PH URINE 5.5 (4.5-8.0); PROTEIN URINE 1+ (NEGATIVE); UROBILINOGEN URINE 0.2 E.U./dL (0.2-1.0)
[2018-08-12] MEDS ORDERED: PIPERACILLIN/TAZ 3.375G PREMIX 50 ML IV SCH (13:45)
[2018-08-12 20:00] VITALS: BP 150/69
[2018-08-12 20:30] VITALS: BP 150/69
[2018-08-12] MEDS ORDERED: ONDANSETRON HCL 4MG/2ML INJ IV PRN (21:45)
[2018-08-12] MEDS: SODIUM CHLORIDE 0.9% 1,000 ML IV SCH (22:30)
[2018-08-12] MEDS: ACETAMINOPHEN 325MG TABLET PO PRN (22:36)
[2018-08-13] VITALS (7 sets, daily range): BP systolic 116–142; BP diastolic 52–86
[2018-08-13] MEDS: ACETAMINOPHEN 325MG TABLET PO PRN (04:35)
[2018-08-13] MEDS: SODIUM CHLORIDE 0.9% 1,000 ML IV SCH ×2 (05:36→15:02)
[2018-08-13] MEDS: ENOXAPARIN 30MG/0.3ML SYR SUBCUT SCH (10:28)
[2018-08-13] MEDS: PANTOPRAZOLE SODIUM 40 MG/VIAL IV SCH (10:28)
[2018-08-13] MEDS: HYDROCODONE/ACETAMINOPHEN 5/325MG TABLET PO PRN ×2 (11:15→20:00)
[2018-08-13] MEDS ORDERED: PIPERACILLIN/TAZ 3.375G PREMIX 50 ML IV SCH (13:00)
[2018-08-13 14:41] LABS: EOSINOPHILS % 3.2 % (0.0-5.0); HEMATOCRIT. 27.3 % (36.0-48.0); HEMOGLOBIN. 8.8 g/dL (12.0-16.0); LYMPHOCYTES % 17.4 % (20.0-50.0); MEAN CORPUSCULAR HEMOGLOBIN 25.2 pg (28.0-32.0); MEAN CORPUSCULAR VOLUME 78.2 fL (81.0-99.0); MEAN PLATELET VOLUME 7.2 fl (7.4-10.4); MONOCYTES % 7.9 % (2.0-8.0); NEUTROPHILS % 70.5 % (40.0-76.0); PLATELET 349 x1000/uL (130-400); RED BLOOD CELL COUNT 3.49 mill/uL (4.2-5.4); RED CELL DISTRIBUTION WIDTH 18.7 % (11.6-14.6)
[2018-08-13 14:47] LABS: CHLORIDE 115 mEq/L (98-107)
[2018-08-13] MEDS: PIPERACILLIN/TAZ 3.375G PREMIX 50 ML IV SCH ×2 (15:02→22:32)
[2018-08-13] MEDS ORDERED: POTASSIUM CHLORIDE INJ 40 MEQ in DEXT 5% WATER 250 ML IV SCH (16:00)
[2018-08-13] MEDS: VANCOMYCIN 750 MG PREMIX 150 ML IV SCH (16:34)
[2018-08-13] MEDS ORDERED: VERAPAMIL HCL 2.5 MG/1 ML 2ML VIAL IV NR (22:00)
[2018-08-13] MEDS ORDERED: DILTIAZEM HCL 5MG/ML 5ML VIAL IV NR (23:00)
[2018-08-14] VITALS (95 sets, daily range): BP systolic 82–185; BP diastolic 32–109
[2018-08-14] MEDS: VANCOMYCIN 750 MG PREMIX 150 ML IV SCH ×2 (00:46→08:38)
[2018-08-14] MEDS: DILTIAZEM HCL 125 MG in DEXT 5% WATER 100 ML IV PRN ×2 (00:50→09:01)
[2018-08-14] MEDS: SODIUM CHLORIDE 0.9% 1,000 ML IV SCH ×4 (01:09→21:45)
[2018-08-14] MEDS: HYDROCODONE/ACETAMINOPHEN 5/325MG TABLET PO PRN ×3 (01:24→21:31)
[2018-08-14] MEDS: PIPERACILLIN/TAZ 3.375G PREMIX 50 ML IV SCH ×3 (05:11→22:13)
[2018-08-14 05:30] LABS: HEMATOCRIT. 29.4 % (36.0-48.0); HEMOGLOBIN. 9.4 g/dL (12.0-16.0); MEAN CORPUSCULAR HEMOGLOBIN 24.8 pg (28.0-32.0); MEAN CORPUSCULAR VOLUME 77.6 fL (81.0-99.0); MEAN PLATELET VOLUME 7.3 fl (7.4-10.4); PLATELET 345 x1000/uL (130-400); RED BLOOD CELL COUNT 3.79 mill/uL (4.2-5.4); RED CELL DISTRIBUTION WIDTH 18.9 % (11.6-14.6)
[2018-08-14 06:08] LABS: CHLORIDE 113 mEq/L (98-107)
[2018-08-14] MEDS: PANTOPRAZOLE SODIUM 40 MG/VIAL IV SCH (08:38)
[2018-08-14] MEDS ORDERED: POTASSIUM CHLORIDE INJ 40 MEQ in DEXT 5% WATER 250 ML IV SCH (09:00)
[2018-08-14] MEDS: ENOXAPARIN 30MG/0.3ML SYR SUBCUT SCH (09:02)
[2018-08-14 10:26] LABS: PLATELET ESTIMATE NORMAL
[2018-08-14] MEDS ORDERED: IPRATROPIUM/ALBUTEROL 0.5-3(2.5)MG/3ML NEB HHN PRN (10:30)
[2018-08-14 11:08] LABS: BG BASE EXCESS -8.4 mmol/L (-2.0-2.0); BG CARBOXYHEMOGLOBIN 0.3 % (0.5-1.5); BG DEOXYHEMOGLOBIN 3.4 % (0.0-5.0); BG HCO3 ACT 14.9 mmol/L (22.0-26.0); BG METHEMOGLOBIN 0.3 % (0.0-1.5); BG OXYGEN SATURATION 96.6 % (92.0-98.5); BG PCO2 23.7 mmHg (35.0-45.0); BG PH 7.416 (7.350-7.450); BG PO2 99.8 mmHg (75.0-100.0); BG SAMPLE SITE RIGHT RADIAL; BG TOTAL HEMOGLOBIN 8.9 g/dL (12.0-18.0); BG VENT MODE ROOM AIR
[2018-08-14] MEDS ORDERED: METOPROLOL TARTRATE 50MG TABLET PO SCH ×2 (11:45→21:00)
[2018-08-14] MEDS: VANCOMYCIN 500 MG PREMIX 100 ML IV SCH (20:40)
[2018-08-14] MEDS: METOPROLOL TARTRATE 50MG TABLET PO SCH (20:40)
[2018-08-14] MEDS: FOLIC ACID 1 MG, THIAMINE HCL 100 MG, MVI, ADULT NO.1 10 ML in DEXTROSE 5% WATER 1,000 ML IV SCH ×4 (20:40)
[2018-08-14] MEDS: LORAZEPAM 2MG/ML CPJ IV PRN (22:18)
[2018-08-15] VITALS (96 sets, daily range): BP systolic 80–136; BP diastolic 24–91
[2018-08-15] MEDS: SODIUM CHLORIDE 0.9% 1,000 ML IV SCH ×3 (04:47→22:22)
[2018-08-15] MEDS: PIPERACILLIN/TAZ 3.375G PREMIX 50 ML IV SCH ×3 (05:17→22:21)
[2018-08-15 05:50] LABS: BASOPHILS % 0.5 % (0.0-2.0); HEMATOCRIT. 26.1 % (36.0-48.0); HEMOGLOBIN. 8.3 g/dL (12.0-16.0); MEAN CORPUSCULAR VOLUME 78.3 fL (81.0-99.0); MEAN PLATELET VOLUME 7.1 fl (7.4-10.4); MONOCYTES % 6.4 % (2.0-8.0); NEUTROPHILS % 78.1 % (40.0-76.0); PLATELET 292 x1000/uL (130-400); RED BLOOD CELL COUNT 3.33 mill/uL (4.2-5.4); RED CELL DISTRIBUTION WIDTH 18.8 % (11.6-14.6)
[2018-08-15 05:52] LABS: CHLORIDE 112 mEq/L (98-107)
[2018-08-15] MEDS: METOPROLOL TARTRATE 50MG TABLET PO SCH ×2 (09:57→21:07)
[2018-08-15] MEDS: VANCOMYCIN 500 MG PREMIX 100 ML IV SCH ×2 (09:58→21:06)
[2018-08-15] MEDS: PANTOPRAZOLE SODIUM 40 MG/VIAL IV SCH (09:58)
[2018-08-15] MEDS ORDERED: POTASSIUM CHLORIDE INJ 40 MEQ in DEXT 5% WATER 250 ML IV NR (10:00)
[2018-08-15] MEDS: ENOXAPARIN 30MG/0.3ML SYR SUBCUT SCH (10:01)
[2018-08-15] MEDS ORDERED: LACTULOSE 20G/30ML UDC PO NR (10:15)
[2018-08-15] MEDS ORDERED: LACTULOSE 20G/30ML UDC PO PRN (10:15)
[2018-08-15] MEDS: ASCORBIC ACID 500 MG TABLET PO SCH (19:01)
[2018-08-15] MEDS: ZINC SULFATE 220 MG ( 50 ) CAPSULE PO SCH (19:01)
[2018-08-15] MEDS: FOLIC ACID 1 MG, THIAMINE HCL 100 MG, MVI, ADULT NO.1 10 ML in DEXTROSE 5% WATER 1,000 ML IV SCH ×4 (21:06)
[2018-08-16] VITALS (43 sets, daily range): BP systolic 87–149; BP diastolic 54–100
[2018-08-16] MEDS: ACETAMINOPHEN 325MG TABLET PO PRN (01:23)
[2018-08-16] MEDS: SODIUM CHLORIDE 0.9% 1,000 ML IV SCH ×3 (06:26→20:45)
[2018-08-16] MEDS: PIPERACILLIN/TAZ 3.375G PREMIX 50 ML IV SCH (06:42)
[2018-08-16 07:51] LABS: BASOPHILS % 0.5 % (0.0-2.0); EOSINOPHILS % 5.7 % (0.0-5.0); LYMPHOCYTES % 9.8 % (20.0-50.0); MEAN CORPUSCULAR HEMOGLOBIN 24.7 pg (28.0-32.0); MEAN CORPUSCULAR VOLUME 79.2 fL (81.0-99.0); MEAN PLATELET VOLUME 7.2 fl (7.4-10.4); MONOCYTES % 5.7 % (2.0-8.0); NEUTROPHILS % 78.3 % (40.0-76.0); PLATELET 305 x1000/uL (130-400); RED BLOOD CELL COUNT 3.66 mill/uL (4.2-5.4); RED CELL DISTRIBUTION WIDTH 19.1 % (11.6-14.6)
[2018-08-16 07:55] LABS: CHLORIDE 115 mEq/L (98-107)
[2018-08-16] MEDS: ENOXAPARIN 30MG/0.3ML SYR SUBCUT SCH (09:00)
[2018-08-16] MEDS: PANTOPRAZOLE SODIUM 40 MG/VIAL IV SCH (09:00)
[2018-08-16] MEDS: ASCORBIC ACID 500 MG TABLET PO SCH (09:00)
[2018-08-16] MEDS: ZINC SULFATE 220 MG ( 50 ) CAPSULE PO SCH (09:00)
[2018-08-16] MEDS: METOPROLOL TARTRATE 50MG TABLET PO SCH ×2 (09:01→20:59)
[2018-08-16] MEDS: HYDROCODONE/ACETAMINOPHEN 5/325MG TABLET PO PRN ×3 (09:31→21:01)
[2018-08-16] MEDS ORDERED: LEVOFLOXACIN 750MG PREMIX 150 ML IV SCH (13:00)
[2018-08-16] MEDS ORDERED: VANCOMYCIN 750 MG PREMIX 150 ML IV SCH (16:00)
[2018-08-17] VITALS: BP 126/70
[2018-08-17 04:00] VITALS: BP 126/74
[2018-08-17] MEDS: FOLIC ACID 1 MG, THIAMINE HCL 100 MG, MVI, ADULT NO.1 10 ML in DEXTROSE 5% WATER 1,000 ML IV SCH ×8 (05:27→20:51)
[2018-08-17] MEDS: HYDROCODONE/ACETAMINOPHEN 5/325MG TABLET PO PRN ×3 (05:28→20:50)
[2018-08-17] MEDS: LORAZEPAM 2MG/ML CPJ IV PRN (05:29)
[2018-08-17 08:00] VITALS: BP 126/69
[2018-08-17 10:51] LABS: HEMATOCRIT. 28.5 % (36.0-48.0); MEAN CORPUSCULAR HEMOGLOBIN 24.5 pg (28.0-32.0); PLATELET 297 x1000/uL (130-400); RED BLOOD CELL COUNT 3.66 mill/uL (4.2-5.4); RED CELL DISTRIBUTION WIDTH 19.1 % (11.6-14.6)
[2018-08-17 11:11] LABS: CHLORIDE 120 mEq/L (98-107)
[2018-08-17] MEDS: PANTOPRAZOLE SODIUM 40 MG/VIAL IV SCH (12:34)
[2018-08-17] MEDS: ENOXAPARIN 30MG/0.3ML SYR SUBCUT SCH (12:35)
[2018-08-17] MEDS: ASCORBIC ACID 500 MG TABLET PO SCH (12:35)
[2018-08-17] MEDS: METOPROLOL TARTRATE 50MG TABLET PO SCH ×2 (12:35→20:51)
[2018-08-17] MEDS: ZINC SULFATE 220 MG ( 50 ) CAPSULE PO SCH (12:35)
[2018-08-17] MEDS: LEVOFLOXACIN 250MG PREMIX 50 ML IV SCH (13:07)
[2018-08-17] MEDS: SODIUM CHLORIDE 0.9% 1,000 ML IV SCH ×2 (13:07→21:03)
[2018-08-17 13:08] LABS: PLATELET ESTIMATE NORMAL
[2018-08-17 16:36] VITALS: BP 114/65
[2018-08-17 20:00] VITALS: BP 141/73
[2018-08-17] MEDS: ACETAMINOPHEN 325MG TABLET PO PRN (20:50)
[2018-08-18] VITALS: BP 133/70
[2018-08-18] MEDS: HYDROCODONE/ACETAMINOPHEN 5/325MG TABLET PO PRN ×2 (01:17→08:22)
[2018-08-18 04:00] VITALS: BP 137/77
[2018-08-18] MEDS: SODIUM CHLORIDE 0.9% 1,000 ML IV SCH ×2 (05:45→13:45)
[2018-08-18 07:52] VITALS: BP 136/60
[2018-08-18] MEDS: ENOXAPARIN 30MG/0.3ML SYR SUBCUT SCH (08:21)
[2018-08-18] MEDS: ASCORBIC ACID 500 MG TABLET PO SCH (08:21)
[2018-08-18] MEDS: ZINC SULFATE 220 MG ( 50 ) CAPSULE PO SCH (08:21)
[2018-08-18] MEDS: PANTOPRAZOLE SODIUM 40 MG/VIAL IV SCH (08:21)
[2018-08-18] MEDS: METOPROLOL TARTRATE 50MG TABLET PO SCH (08:29)
[2018-08-18 11:30] VITALS: BP 133/63
[2018-08-18] MEDS ORDERED: HYDROCODONE/ACETAMINOPHEN 5/325MG TABLET PO PRN (13:45)
[2018-08-18] MEDS: LEVOFLOXACIN 250MG PREMIX 50 ML IV SCH (14:03)
[2018-08-18 16:26] VITALS: BP 122/56
[2018-08-18 16:37] VITALS: BP 122/56
== END 2018-08-18 19:15 | disposition home health service (06) | DRG 720 ==
LOC: ER 07:44 → EDBEDREQTM 08:32 → EDBEDREQSVC 08:32 → 5WST 11:21 → EDBEDREQSVC 12:32 → EDBEDREQTM 12:32 → EDBEDREQ 12:32 → EDBEDREQSVC 16:45 → ENRESERV 16:49 → MICUNO 08-14 00:40 → 8WST 08-16 14:02
PROVIDERS: ADMIT Internal Medicine; ATTEND Internal Medicine
PROC: 05H533Z Insertion of Infusion Device into Right Subclavian Vein, Percutaneous Approach (ICD-10-PCS; principal; 2018-08-13)
PROC: B546ZZA Ultrasonography of Right Subclavian Vein, Guidance (ICD-10-PCS; 2018-08-13)
DX: A41.9 Sepsis, unspecified organism (principal); Z93.0 Tracheostomy status; F22 Delusional disorders; M41.9 Scoliosis, unspecified; E87.6 Hypokalemia; N39.0 Urinary tract infection, site not specified; I10 Essential (primary) hypertension; G80.9 Cerebral palsy, unspecified; F10.20 Alcohol dependence, uncomplicated; Z74.01 Bed confinement status; G40.909 Epilepsy, unspecified, not intractable, without status epilepticus; J45.909 Unspecified asthma, uncomplicated; E86.0 Dehydration; M24.651 Ankylosis, right hip; Z90.49 Acquired absence of other specified parts of digestive tract
CPT/HCPCS: 36415; 36569; 36600; 71045; 74177; 76937; 80048; 80202; 82140; 82375; 82805; 83605; 83880; 84145; 84484; 87070; 87077; 87186; 92610; 93005; 93306; 93970; 96365; 96375; 99285; A6261; C1725; C1893; C9113; J1642; J1650; J1956; J2060; J2270; J2405; J2543; J3370; J3411; J3480; J3490; J7030; J7040; J7060; J7070; J7620; Q9967; A4315